=== PATIENT | female | born 1960 | race Caucasian/White ===

== ENCOUNTER 2019-07-18 08:47 | Outpatient (REF) | payer OTHER, SELFPAY ==
[2019-07-18 09:05] LABS: Basophils # 0.1 10^3/uL (0.0-0.1); Basophils % 0.6 %; Eosinophils # 0.2 10^3/uL (0.0-0.8); Eosinophils % 1.9 %; Hematocrit 38.4 % (37.0-47.0); Hemoglobin 12.9 g/dL (11.5-15.3); Lymphocytes # 1.5 10^3/uL (0.8-4.8); Lymphocytes % 16.2 %; Mean Corpuscular HGB Conc 33.6 g/dL (30.0-36.0); Mean Corpuscular Hemoglobin 30.9 pg (28.0-34.0); Mean Corpuscular Volume 92.1 fL (81-99); Mean Platelet Volume 10.6 fL (7.4-10.4); Monocytes # 0.8 10^3/uL (0.2-0.9); Monocytes % 8.8 %; Neutrophils # 6.5 10^3/uL (1.8-7.7); Neutrophils % 72.2 %; Nucleated Red Blood Cells % 0 %; Platelet Count 272 10^3/cmm (130-400); Red Blood Count 4.17 10^6/uL (4.1-5.3); Red Cell Distribution Width 12.8 % (12.1-15.1)
[2019-07-18 11:26] LABS: Estmated Average Glucose 117; Hemoglobin A1C 5.7 % (4.0-6.0)
[2019-07-18 13:49] LABS: Alanine Aminotransferase 13 U/L (0-33); Alkaline Phosphatase 58 IU/L (35-105); Aspartate Amino Transferase 19 U/L (0-32); Blood Urea Nitrogen 12 mg/dL (6-20); Calcium 9.8 mg/dL (8.5-10.5); Carbon Dioxide 25 mmol/L (22-29); Chloride 93 mmol/L (98-107); Chol HDL Ratio 4.05 mg/dL (0.0-4.40); Cholesterol 227 mg/dL (0-200); Globulin 2.8 g/dL (1.3-4.6); Glomerular Filtration Rate 102.3 mL/min (90-130); Glucose 95 mg/dL (65-115); HDL Cholesterol 56 mg/dL (60-100); LDL Cholesterol Calculated 151 mg/dL (50-129); Sodium 131 mmol/L (136-145); Total Bilirubin 0.6 mg/dL (0.15-1.2); Total Protein 6.8 g/dL (6.6-8.7); Triglycerides 98 mg/dL (0-150)
== END 2019-07-18 08:48 | disposition home or self-care (01) ==
LOC: LAB 08:47
PROVIDERS: Family Provider Electrodiagnostic Medicine; PCP Electrodiagnostic Medicine; Visit Provider Dermatology
DX: Z01.89 Encounter for other specified special examinations (principal)
CPT/HCPCS: 80053; 80061; 83036; 85025

== ENCOUNTER 2019-11-01 08:48 | Emergency (ER) | payer OTHER, SELFPAY ==
--- NOTE | 2019-11-01 08:54 | XRR_ITS ---
PROCEDURE INFORMATION: Exam: XR Chest, 1 View Exam date and time: 11/01/2019 8:55 AM Age: 59 years old Clinical indication: Chest pain TECHNIQUE: Imaging protocol: XR of the chest Views: 1 view. COMPARISON: CR Chest 1 [place] [id number] 10/24/2017 7:32 PM FINDINGS: Lungs: COPD, interstitial prominence, chronic granulomatous disease. Pleural space: No pleural effusion. Heart/Mediastinum: No cardiomegaly. Bones/joints: Mild degenerative change. Soft tissues: Prominent nipple shadows. When correlating with the previous study, no significant interval changes are present. XR/XR chest 1V portable [id number] IMPRESSION: Stable appearance of the chest, not significantly changed from 10/24/17.
[2019-11-01 09:00] VITALS: BP 108/80; PULSE 90; RESP 17; TEMP 36.4; O2SAT 98; BMI 17.0
--- NOTE | 2019-11-01 09:05 | W.ED.ARRPALP ---
HPI - Arrhythmia/Palpitations General: Chief Complaint: General Medical Stated Complaint: POSS A-FIB Time Seen by Provider: 11/01/19 08:57 Source: patient Mode of arrival: ambulatory Limitations: no limitations History of Present Illness: HPI narrative: Patient is a 59-year-old female with a history of paroxysmal atrial fibrillation here for complaints of palpitations over the past week. Patient has been on several medications for her atrial fibrillation including flecainide, propafenone, and amiodarone. When she was on these 3 medications she apparently was not tolerating the side effects very well. She has a stem threshing machine operator Dr. Lama in [place] who switched patient to Sotalol (dose of 40mg BID). She is also taking Cardizem (60mg) during episodes. Patient states she was scheduled for cardiac ablation in [place] however that procedure got canceled due to COVID. She is currently rescheduled to see their office November 10 for reevaluation. Patient states she has been having intermittent palpitations, SOB, and dizziness mainly with exertion over the past week. She is having mild chest discomfort during episodes. MD complaint: heart racing , palpitations, irregular heart beat and atrial fibrillation Onset (ago): day(s) Duration: intermittent Context: occurred during rest Arrhythmia history: atrial fibrillation Associated symptoms: Deny nausea, pre-syncope, syncope or vomiting Review of Systems General: Reports: 10 or more systems reviewed and unremarkable except in HPI and below Const: Denies: fever(s) or chills Eyes: Denies: change in vision, blurry vision or photophobia Card: Reports: palpitations and irregular heart rhythm; Denies: chest pain, edema, swelling of feet/ankles, lightheadedness, syncope, pre-syncope, dyspnea on exertion, orthopnea, leg pain with exertion or acrocyanosis Resp: Denies: dyspnea, productive cough, pain on inspiration, hemoptysis or chest congestion GI: Denies: abdominal pain, nausea, vomiting, heartburn or diarrhea : Denies: dysuria Musc: Denies: neck pain, back pain or joint pain Skin/Breast: Denies: rash Neuro: Denies: headache(s), numbness in extremities, weakness in extremities, sensory changes, lack of coordination, difficulty walking or dizziness [facility] ED PFSH: Medical History (Updated 05/23/20 @ 10:30 by OBEY Connelly) Atrial fibrillation Hyperlipidemia Family History Other Cancer Social History Smoking and tobacco status: current every day smoker Physical Exam Const: COMMON NORMALS: no acute distress, average body habitus, patient oriented x3, no limitations, healthy appearing, alert and well nourished HENMT: COMMON NORMALS: normocephalic and atraumatic HEAD & SCALP: normocephalic and atraumatic Neck/C-Spine: COMMON NORMALS: full ROM and no lymphadenopathy GENERAL: No anterior neck swelling Chest: COMMONS NORMALS: normal inspection of the chest and normal palpation of entire chest wall Resp: COMMON NORMALS: normal respiratory effort and clear to auscultation bilaterally AUSCULTATION: clear to auscultation bilaterally Cardio: COMMON NORMALS: regular rate and regular rhythm RATE: regular rate RHYTHM: regular rhythm Extremity: COMMON NORMALS: no clubbing, cyanosis or edema, no calf tenderness and no pedal edema Neuro: COMMON NORMALS: patient oriented x3 SENSORIUM/ORIENTATION: Yes alert Skin: COMMON NORMALS: no rashes or lesions noted GENERAL SKIN EXAM: no rashes or lesions noted Course Vital Signs: Vital signs: Vital Signs Temperature 97.6 F 11/01/19 09:00 Pulse Rate 90 11/01/19 09:00 Respiratory Rate 17 11/01/19 09:00 Blood Pressure 108/80 11/01/19 09:00 Pulse Oximetry 98 11/01/19 09:00 MDM - Arrhythmia/Palpitations MDM Narrative: Medical decision making narrative: Patient's EKG reviewed with Dr. Rivas showing normal sinus rhythm at a rate of 93. She has been in normal sinus with a rate of anywhere from 90-100 throughout her stay. Blood pressure 100s/80s. She tells me she is supposed to be taking Sotalol 40 mg twice daily however over the past 3 to 4 days has been taking 80 mg twice daily. This does not seem to be affecting her rate at this time. Spoke to the stem threshing machine operator Dr. Lopez contract runner who recommended we increase patient's Sotalol to 120 mg twice daily. She can continue taking her Cardizem 60 mg during episodes. With it being a holiday weekend and offices closed on Sunday patient needs to contact either Dr. Wu or Dr. Lama on Sunday for further instructions. Return to ED precautions given regarding the weekend. Lab Data: Labs: Lab Results 11/01/19 11/01/19 11/01/19 Range/Units 09:13 09:13 09:13 WBC 11.3 H (4.0-10.0) 10^3/ uL RBC 3.98 L (4.1-5.3) 10^6/u L Hgb 12.7 (11.5-15.3) g/dL Hct 39.0 (37.0-47.0) % MCV 98.0 (81-99) fL MCH 31.9 (28.0-34.0) pg MCHC 32.6 (30.0-36.0) g/dL RDW 11.9 L (12.1-15.1) % Plt Count 296 (130-400) 10^3/c mm MPV 10.3 (7.4-10.4) fL Neut % (Auto) 76.5 % Lymph % (Auto) 12.9 % [place] % (Auto) 8.3 % Eos % (Auto) 1.3 % Baso % (Auto) 0.6 % Neut # (Auto) 8.7 H (1.8-7.7) 10^3/u L Lymph # (Auto) 1.5 (0.8-4.8) 10^3/u L [place] # (Auto) 0.9 (0.2-0.9) 10^3/u L Eos # (Auto) 0.2 (0.0-0.8) 10^3/u L Baso # (Auto) 0.1 (0.0-0.1) 10^3/u L Nucleated RBC % (a uto) 0 % Nucleated RBCs # 0.0 /100WBC Sodium 139 (136-145) mmol/L Potassium 4.0 (3.5-5.1) mmol/L Chloride 104 (98-107) mmol/L Carbon Dioxide 24 (22-29) mmol/L Anion Gap 15.0 (5-19) BUN 23 H (6-20) mg/dL Creatinine 0.8 (0.5-0.9) mg/dL GFR Calculation 73.4 L (90-130) mL/min Glucose 79 (65-115) mg/dL Calculated Osmolal ity 284 L (285-295) mOsm/k g Calcium 9.9 (8.5-10.5) mg/dL Total Bilirubin 0.4 (0.15-1.2) mg/dL AST 19 (0-32) U/L ALT 16 (0-33) U/L Alkaline Phosphata se 46 (35-105) IU/L Troponin T Baselin e 6 (0-10) ng/mL Total Protein 6.9 (6.6-8.7) g/dL Albumin 4.0 (3.5-5.2) g/dL Globulin 2.9 (1.3-4.6) g/dL TSH 1.75 (0.27-4.20) uIU/ mL Imaging Data^: CXR: Radiologist's impression: [place] [address] XRay Report Signed Patient: Gideon Evans Unit #: [id number] : 1960 Age/Sex: 59 / F ADM Date: 11/01/19 Loc: ER Room/Bed: Attending Dr: Ordering Provider/Ordering MD: Tara Holden Date of Service: 11/01/19 Procedure(s): XR chest 1V portable [id number] Accession Number(s): [id number] Report Number: [id number] PROCEDURE INFORMATION: Exam: XR Chest, 1 View Exam date and time: 11/01/2019 8:55 AM Age: 59 years old Clinical indication: Chest pain TECHNIQUE: Imaging protocol: XR of the chest Views: 1 view. COMPARISON: CR Chest 1 [place] [id number] 10/24/2017 7:32 PM FINDINGS: Lungs: COPD, interstitial prominence, chronic granulomatous disease. Pleural space: No pleural effusion. Heart/Mediastinum: No cardiomegaly. Bones/joints: Mild degenerative change. Soft tissues: Prominent nipple shadows. When correlating with the previous study, no significant interval changes are present. XR/XR chest 1V portable [id number] IMPRESSION: Stable appearance of the chest, not significantly changed from 10/24/17. Dictated By: Willi Bergeron MD Signed By: Willi Bergeron MD Signed Date/Time: 11/01/19 1005 DD/ 1004 EKG Data^: EKG 1: EKG interpretation date: 11/01/19 EKG interpretation time: 09:14 Interpretation: Normal sinus rhythm Rate [address] elevation or depression changes noted Reviewed with Dr. Rivas Other EKG comments: Chest X-Ray 11/01/19 08:54 IMPRESSION: Stable appearance of the chest, not significantly changed from 10/24/17. Discharge Plan Discharge Patient Disposition: Home, Self-Care Clinical Impression: Paroxysmal atrial fibrillation Condition: Stable Prescriptions: Continued sotalol 120 mg tablet 120 mg PO BID Qty: 90 RF: 3 No Action atorvastatin 40 mg tablet 40 mg PO DAILY RF: 0 Xarelto 20 mg tablet 20 mg PO DAILY RF: 0 magnesium oxide 400 mg magnesium capsule 400 mg PO DAILY RF: 0 cholecalciferol (vitamin D3) 125 mcg (5,000 unit) capsule 5,000 unit PO DAILY RF: 0 omega-3 fatty acids [Fish Oil Concentrate] 1,000 mg capsule 1,000 mg PO BID RF: 0 ascorbic acid (vitamin C) 100 mg tablet 100 mg PO DAILY RF: 0 coenzyme Q10 [Co Q-10] 10 mg capsule 10 mg PO TID RF: 0 multivitamin Tablet 1 tab PO DAILY RF: 0 thyroid (pork) [[place] Thyroid] 15 mg tablet 30 mg PO DAILY RF: 0 Discharge Orders: Discharge Order (Routine); Ordered 11/01/19 Ordered By: Tara Holden Referrals: Enrico Bucnh DO [Primary Care Provider] - Patient Instructions: Atrial Fibrillation (ED) Activity Restrictions/Additional Instructions: As discussed you have indicated you have been taking your Sotalol 80 mg twice daily over the past few days and it does not seem to be controlling symptoms. I spoke to the stem threshing machine operator contract runner and we will increase this to 120 mg twice daily. I still recommend you take the Cardizem during episodes as previously instructed. Hydration can limit number of episodes so make sure you are drinking plenty of water/gatorade daily. Contact Dr. Wu and/or Dr. Lama on Sunday to see if they recommend anything further. Monitor blood pressure and heart rates at home. Return to ED for worsening chest pains, prolonged palpitations, dizziness/lightheadedness, passing out episodes, shortness of breath, or any other concerns you may have. Coding Level of Care Code ED Infantry Operations Specialist for Chg Fwd Exam Comprehensive
[2019-11-01 09:19] LABS: Basophils # 0.1 10^3/uL (0.0-0.1); Basophils % 0.6 %; Eosinophils # 0.2 10^3/uL (0.0-0.8); Eosinophils % 1.3 %; Hemoglobin 12.7 g/dL (11.5-15.3); Lymphocytes # 1.5 10^3/uL (0.8-4.8); Lymphocytes % 12.9 %; Mean Corpuscular HGB Conc 32.6 g/dL (30.0-36.0); Mean Corpuscular Hemoglobin 31.9 pg (28.0-34.0); Mean Platelet Volume 10.3 fL (7.4-10.4); Monocytes # 0.9 10^3/uL (0.2-0.9); Monocytes % 8.3 %; Neutrophils # 8.7 10^3/uL (1.8-7.7); Neutrophils % 76.5 %; Nucleated Red Blood Cells % 0 %; Platelet Count 296 10^3/cmm (130-400); Red Blood Count 3.98 10^6/uL (4.1-5.3); Red Cell Distribution Width 11.9 % (12.1-15.1); White Blood Count 11.3 10^3/uL (4.0-10.0)
[2019-11-01 09:36] LABS: Troponin(5th) Baseline 6 ng/mL (0-10)
[2019-11-01 09:44] LABS: Alanine Aminotransferase 16 U/L (0-33); Alkaline Phosphatase 46 IU/L (35-105); Aspartate Amino Transferase 19 U/L (0-32); Blood Urea Nitrogen 23 mg/dL (6-20); Calcium 9.9 mg/dL (8.5-10.5); Carbon Dioxide 24 mmol/L (22-29); Chloride 104 mmol/L (98-107); Globulin 2.9 g/dL (1.3-4.6); Glomerular Filtration Rate 73.4 mL/min (90-130); Glucose 79 mg/dL (65-115); Osmolality Calculated 284 mOsm/kg (285-295); Sodium 139 mmol/L (136-145); Thyroid Stimulating Hormone 1.75 uIU/mL (0.27-4.20); Total Bilirubin 0.4 mg/dL (0.15-1.2); Total Protein 6.9 g/dL (6.6-8.7)
[2019-11-01 10:41] VITALS: BP 90/71; PULSE 96; RESP 18; O2SAT 96
== END 2019-11-01 10:42 | disposition home or self-care (01) ==
PROVIDERS: Emergency Provider Physician Assistant; PCP Electrodiagnostic Medicine
DX: I48.0 Paroxysmal atrial fibrillation (principal); E78.5 Hyperlipidemia, unspecified; F17.210 Nicotine dependence, cigarettes, uncomplicated
CPT/HCPCS: 12345; 71045; 80053; 84443; 84484; 85025; 99282; 99284

== ENCOUNTER 2019-11-14 10:53 | Outpatient (CLI) | payer OTHER, SELFPAY ==
[2019-11-14 11:21] LABS: Basophils % 0.5 %; Eosinophils # 0.2 10^3/uL (0.0-0.8); Eosinophils % 2.5 %; Hematocrit 38.2 % (37.0-47.0); Hemoglobin 12.2 g/dL (11.5-15.3); Lymphocytes # 1.8 10^3/uL (0.8-4.8); Lymphocytes % 23.1 %; Mean Corpuscular HGB Conc 31.9 g/dL (30.0-36.0); Mean Corpuscular Hemoglobin 31.4 pg (28.0-34.0); Mean Corpuscular Volume 98.5 fL (81-99); Mean Platelet Volume 10.5 fL (7.4-10.4); Monocytes # 0.7 10^3/uL (0.2-0.9); Monocytes % 8.7 %; Neutrophils % 65.1 %; Nucleated Red Blood Cells % 0 %; Platelet Count 287 10^3/cmm (130-400); Red Blood Count 3.88 10^6/uL (4.1-5.3); Red Cell Distribution Width 12.4 % (12.1-15.1); White Blood Count 7.7 10^3/uL (4.0-10.0)
[2019-11-14 11:30] LABS: INR 0.91 (0.8-1.2)
[2019-11-14 11:49] LABS: Anion Gap 14.3 (5-19); Blood Urea Nitrogen 17 mg/dL (6-20); Calcium 10.1 mg/dL (8.5-10.5); Carbon Dioxide 26 mmol/L (22-29); Chloride 106 mmol/L (98-107); Glomerular Filtration Rate 102.3 mL/min (90-130); Glucose 98 mg/dL (65-115); Magnesium 2.1 mg/dL (1.7-2.3); Osmolality Calculated 290 mOsm/kg (285-295); Potassium 4.3 mmol/L (3.5-5.1); Sodium 142 mmol/L (136-145)
== END 2019-11-14 10:54 | disposition home or self-care (01) ==
LOC: LAB 10:58
PROVIDERS: PCP Electrodiagnostic Medicine; Visit Provider Internal Medicine Clinical Cardiac Electrophysiology
DX: I47.1 Supraventricular tachycardia (principal)
CPT/HCPCS: 36415; 80048; 83735; 85025; 85610; 85730

== ENCOUNTER 2020-04-20 10:14 | Outpatient (CLI) | payer OTHER, SELFPAY ==
--- NOTE | 2020-04-20 10:24 | XR_ITS ---
WS: [id number] XR KUB [id number] REASON FOR EXAM: CONSTIPATION FINDINGS: Moderate amount of stool throughout the colon including the rectal vault. No significant bowel dilata tion. No free air. No significant calcification. No mass identified. XR/XR KUB [id number] IMPRESSION: Bowel gas pattern as above.
== END 2020-04-20 10:15 | disposition home or self-care (01) ==
LOC: RAD 10:21
PROVIDERS: PCP Electrodiagnostic Medicine; Visit Provider Electrodiagnostic Medicine
DX: K59.00 Constipation, unspecified (principal)
CPT/HCPCS: 74018

== ENCOUNTER 2020-10-28 12:48 | Outpatient (CLI) | payer OTHER, SELFPAY ==
--- NOTE | 2020-10-28 13:01 | MM_ITS ---
WS: [id number] BILATERAL DIGITAL SCREENING MAMMOGRAPHY WITH CAD CLINICAL INFORMATION: SCREENING HISTORY: Screening mammogram. No current complaints. COMPARISON: 01/20 2016 TECHNIQUE: Bilateral CC and MLO views. FINDINGS: The breasts are composed of heterogeneous fibroglandular density tissue, which can limit the detectio n of small underlying mass lesions. No suspicious mass, asymmetry, calcifications, or architectural d istortion. No evidence of malignancy. MM/[place] [id number] IMPRESSION: BI-RADS: 1-Negative FOLLOW UP: 1 Year Follow-up Recommend return to annual screening mammography.
== END 2020-10-28 12:49 | disposition home or self-care (01) ==
LOC: RADSHAW 12:51
PROVIDERS: PCP Electrodiagnostic Medicine; Visit Provider Electrodiagnostic Medicine
DX: Z12.31 Encounter for screening mammogram for malignant neoplasm of breast (principal)
CPT/HCPCS: 77067

== ENCOUNTER 2020-11-30 08:18 | Outpatient (CLI) | payer SELFPAY ==
[2020-11-30 08:40] LABS: HF Add Manual Diff No
[2020-11-30 08:46] LABS: Basophils # 0.1 10^3/uL (0.0-0.1); Eosinophils # 0.2 10^3/uL (0.0-0.8); Eosinophils % 2.2 %; Hemoglobin 13.9 g/dL (11.5-15.3); Lymphocytes # 1.4 10^3/uL (0.8-4.8); Lymphocytes % 18.8 %; Mean Corpuscular HGB Conc 33.1 g/dL (30.0-36.0); Mean Corpuscular Volume 96.6 fL (81-99); Mean Platelet Volume 10.5 fL (7.4-10.4); Monocytes # 0.6 10^3/uL (0.2-0.9); Monocytes % 8.8 %; Neutrophils # 4.96 10^3/uL (1.8-7.7); Neutrophils % 69.1 %; Nucleated Red Blood Cells % 0 %; Platelet Count 260 10^3/cmm (130-400); Red Blood Count 4.35 10^6/uL (4.1-5.3); Red Cell Distribution Width 13.7 % (12.1-15.1); White Blood Count 7.2 10^3/uL (4.0-10.0)
[2020-11-30 09:02] LABS: Alanine Aminotransferase 9 U/L (0-33); Albumin Level 4.2 g/dL (3.5-5.2); Alkaline Phosphatase 49 IU/L (35-105); Anion Gap 11.5 (5-19); Aspartate Amino Transferase 15 U/L (0-32); Blood Urea Nitrogen 16 mg/dL (8-23); Calcium 9.3 mg/dL (8.5-10.5); Carbon Dioxide 28 mmol/L (22-29); Chloride 105 mmol/L (98-107); Chol HDL Ratio 3.61 mg/dL (0.0-4.40); Cholesterol 213 mg/dL (0-200); Globulin 2.5 g/dL (1.3-4.6); Glucose 105 mg/dL (65-115); HDL Cholesterol 59 mg/dL (60-100); LDL Cholesterol Calculated 130 mg/dL (50-129); Osmolality Calculated 292 mOsm/kg (285-295); Potassium 4.5 mmol/L (3.5-5.1); Sodium 140 mmol/L (136-145); Total Bilirubin 0.4 mg/dL (0.15-1.2); Total Protein 6.7 g/dL (6.6-8.7); Triglycerides 122 mg/dL (0-150)
[2020-11-30 09:39] LABS: Estmated Average Glucose 100; Hemoglobin A1C 5.1 % (4.0-6.0)
== END 2020-11-30 08:19 | disposition home or self-care (01) ==
LOC: LAB 08:20
PROVIDERS: PCP Electrodiagnostic Medicine; Visit Provider Dermatology
DX: Z13.9 Encounter for screening, unspecified (principal)

== ENCOUNTER 2022-07-13 07:13 | Outpatient (CLI) | payer OTHER, SELFPAY ==
--- NOTE | 2022-07-13 07:24 | US_ITS ---
WS: [id number] RIGHT UPPER QUADRANT ULTRASOUND HISTORY: ELEVATED LIVER ENZYMES COMPARISON: None available. Liver: 13.3 cm in length. Normal size liver. No bile duct dilatation or mass. Portal Vein: Normal hepatopetal flow with monophasic waveform. Gallbladder: Normally distended gallbladder with no stones or wall thickening. CBD: 0.5 cm Pancreas: Normal size and echogenicity. Right kidney: 10.2 cm in length. Normal size and echogenicity. No hydronephrosis or mass. Aorta and IVC: Unremarkable abdominal aorta and IVC. No ascites. US/US gall bladder [id number] IMPRESSION: Normal RIGHT upper quadrant ultrasound.
== END 2022-07-13 07:14 | disposition home or self-care (01) ==
PROVIDERS: PCP Electrodiagnostic Medicine; Visit Provider Electrodiagnostic Medicine
DX: R74.8 Abnormal levels of other serum enzymes (principal)
CPT/HCPCS: 76705

== ENCOUNTER 2023-01-19 07:36 | Outpatient (CLI) | payer OTHER, SELFPAY ==
--- NOTE | 2023-01-19 07:54 | CT_ITS ---
WS: [id number] CT ABDOMEN AND PELVIS WITH AND WITHOUT CONTRAST HISTORY: CHRONIC ABDOMINAL PAIN TECHNIQUE: Unenhanced 5 mm axial imaging first performed through the abdomen and pelvis. Post contras t imaging through the abdomen and pelvis. Oral contrast has been provided. Sagittal and coronal refo rmats are submitted. All CT scans at [facility] use at least one of these dose optimization t echniques: automated exposure control; mA and/or kV adjustment per patient size (includes targeted ex ams where dose is matched to clinical indication); or iterative reconstruction. CONTRAST: Omnipaque 350; 95 mL IV. DLP: 519.13 mGy.cm COMPARISON: None available. Lung bases are clear. Small hiatal hernia. Normal size liver. 5 mm hepatic cyst right lobe. Normal portal vein. No bile duct dilatation or mass. Normal gallbladder and spleen. Normal pancreas and adrenal glands. No pancreatic duct dilatation. Mi ld atherosclerosis aorta. Kidneys are normal size. No solid mass. Cortical 5 mm cyst upper pole left kidney. No renal calcifications or obstruction. Stomach is well distended with oral contrast. No small bowel obstruction. Marked constipation through out the colon. No obstructive pattern. Large amount of inspissated fecal material at the rectum. The appendix is partially visualized and normal. No adenopathy or ascites. No ventral abdominal wall hernia. Urinary bladder is moderately well disten ded. Straightening of the normal lumbar lordosis. Disc spaces are narrowed and desiccated. IMPRESSION: 1. Marked diffuse constipation with increasing inspissated fecal material at the rectum. 2. No ascites or adenopathy. 3. No renal calcifications or obstruction.
[2023-01-19 09:14] LABS: Blood Urea Nitrogen 13 mg/dL (8-23); Glomerular Filtration Rate 84.8 mL/min (90-130)
[2023-01-19] MEDS: iohexol 350 mg/mL 500 mL Btl (per mL) PO (09:19)
[2023-01-19] MEDS: iohexol 350 mg/mL 500 mL Btl (per mL) IV (09:19)
== END 2023-01-19 07:37 | disposition home or self-care (01) ==
PROVIDERS: PCP Electrodiagnostic Medicine; Visit Provider Electrodiagnostic Medicine
DX: K59.00 Constipation, unspecified (principal); G89.29 Other chronic pain
CPT/HCPCS: 74178; 82565; 84520; Q9967

== ENCOUNTER 2024-12-08 12:54 | Oncology outpatient (recurring) (ONCR) | payer OTHER, SELFPAY ==
--- NOTE | 2024-11-19 14:58 | N.ONRAD NP_ITS ---
Radiation Oncology New Patient Visit Patient: Gideon Evans MR#: [id number] : 1960> Age: 64> Sex: Female> Dictated by: Dr. 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 Radiotherapy to date: Summary > No prior radiation therapy. Chief Complaint / History of Present Illness: New hoarseness 04/2024 with no other sxs. Two courses of antibiotics given with no improvement. 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 Bx 07/23/2024 focal high grade dysplasia. See by Dr. Maciel 10/08/2024 DL performed . small area of residual dysplasia. Bx performed which revealed invasive well differentiated squamous cell carcinoma. Neck CT scan 10/02/2024 Left thyroid lobe cystic and solid mass. No adenopathy and no TVC lesion seen. PET/CT 10/15/2024 normal sized hilar and mediastinal LN mildly hypermetabolic favoring benign process. Bilateral thyroid nodules with no hypermetabolic character. No findings seen at level of glottis larynx. No cervical adenopathy. FNA thyroid 10/22/2024 was benign. Hoarseness is stable. No swallowing, laryngeal or neck pain. Weight up a couple of pounds with effort. Eating well Quit smoking 10/13/2024 after her diagnosis. Fully active. Edentulous. Presented at tumor conference at [facility] at which time staging PET/CT followed by radiation oncology assessment and treatment was recommended. Current Medications: Amour Thyroid replacement Allergies: codeine, alpha-gal. Medical History: Hypothyroid, SVT s/p ablation, rotator cuff repair. COPD Surgical History: Rotator cuff repair Family History: Not obtained Social History: x 14 yrs. 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 Smoked up to 1 ppd 16 to 64 now quit. Vital Signs: Performed on 11/19/2024 9:25 AM BMI - 18.2 kg/m2 (low), Height - 67 in, Weight - 116.2 lbs, Temperature - 97 f, Pulse - 61 /min, Respiration - 18 /min, O2 Sat - 100 %, Pain - 0, Fatigue - 0 and BP - 134/ 80 mm(hg). Physical Exam: Thin in NAD. No stridor. Edentulous with dentures in place. No cervical adenopathy. Larynx mobile and non-tender. No clubbing. Performance Status: ECOG PS 0 Pathology: See above Lab: none Imaging: See HPI Impression: Non bulky St I (T1, N0, M0) well differentiated squamous cell carcinoma of left TVC. Recommend 63 Gy in 28 fraction to glottis larynx alone. No indication for shade coverage and no indication for addition of chemo with primary radiation. Discussed in detail with patient. Plan: Signed by: 11/20/2024 8:27:27 AM <<Signature on File>> Time spent with patient: CPT Code: CPT Code:
--- NOTE | 2024-11-28 13:00 | PC.NUTR ---
Consult for PEG tube feeding recommendations received. Reports in EMR stated Pt has alpha gal allergy therefore she should avoid milk based formulas. Recommend Instapio Peptide 1.5, 3.5 cartons or 875mls/day, per following regimen: *60 mls FWF before and after feeding* 8am: 1 carton (250mls) 1pm: 1 carton (250mls) 4pm: 0.5 carton (125mls) 8pm: 1 carton (250mls) 3.5 cartons of Instapio Peptide 1.5 will provide 1750kcals or 95% Pt's estimate kcal needs and 84 grams protein or 92% Pt's estimated protein needs.
--- NOTE | 2024-12-02 13:58 | ONCRAD TMN_ITS ---
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 ID: GlotticLarynx, Energy: 6X, Dose/Fx (cGy): 225, #Fx: , Dose Correction (cGy): 0, Total Dose Delivered (cGy): 900, Start Date: 11/27/2024, Elapsed Days: 5 Reason for visit: The patient is being seen today as part of their regularly scheduled weekly on treatment visits to assess for acute toxicities from radiotherapy. Review of Systems: LEFT TVC CA. Had feeding tube placed. No voiced complaints. Skin intact Vital Signs: Performed on 12/02/2024 1:32 PM BMI - 18.137 kg/m2 (low), Height - 67 in, Weight - 115.8 lbs, Temperature - 96.7 f, Pulse - 72 /min, Respiration - 16 /min, O2 Sat - 98 %, Pain - 0, Fatigue - 0 and BP - 124/ 84 mm(hg). Physical Exam: AAOx3. Skin intact. No erythema. Imaging: Radiation therapy imaging related to accurate target localization (i.e. KV, MV and CBCT) was reviewed. Appropriate changes, if any, were made to ensure treatment accuracy. Plan: Cont XRT Signed by: Arnel Jade 12/02/2024 1:57:26 PM
== END 2024-12-08 23:59 | disposition home or self-care (01) ==
PROVIDERS: PCP Electrodiagnostic Medicine; Visit Provider Radiology Radiation Oncology
DX: Z51.0 Encounter for antineoplastic radiation therapy (principal); C32.0 Malignant neoplasm of glottis
CPT/HCPCS: 77290; 77295; 77300; 77334; 77336; 77387; 77412

== ENCOUNTER 2024-12-09 12:06 | Outpatient (RCR) | payer OTHER, SELFPAY | END 2025-01-08 23:59 | disposition home or self-care (01) | LOC: SST 12:06 | PROVIDERS: PCP Electrodiagnostic Medicine; Visit Provider Internal Medicine Cardiovascular Disease | DX: C32.0 Malignant neoplasm of glottis (principal) | CPT/HCPCS: 92507; 92524 ==

== ENCOUNTER 2024-12-27 08:53 | Emergency (ER) | payer OTHER, SELFPAY ==
--- OUTSIDE RECORDS SUMMARY | 2007-11-18 19:00 | XMS_ITS | Continuity of Care Document ---
Author Organization [facility] Address [address] [place], [address] Phone Care Team Providers Care Chief Marketing Officer Name Role Phone Unavailable Unavailable Unavailable Advance Directives Directive Yes / No Effective Date File Name No Information Encounters Encounter Description Practice Location Reason(s) For Visit Diagnoses Date Provider Providers Copied on Encounter [facility], [address] [place], [place], [id number], [place] tel:[phone] [facility] [place] [facility] No Information 0200 [id number] No Information Family History Family Member Type Diagnosis Age At Onset No Information Payers Payer name Insurance type Covered alliance party ID Authoriza tion(s) No Information Social History Type Description Quantity Date Captured Comments Sex Female Smoking Status No Information Vital Signs Date / Time: Height Weight BMI Pulse Rate Blood Pressure Temperature Respiratory Rate Body Surface Area Head Circumference Head Circ. Percentile Wt./Les. Percentile BMI percentile Pulse Ox Inhaled Ox 67.00 in 56.699 kg (125.00 lbs) 19.5 8 kg/m eter (2) 76 /min 100/78 mm[Hg] 98.60 F 18 /min Chief Complaint And Reason For Visit No Information Reason For Referral Reason For Referral No Information History Of Present Illness Encounter Date Complaint History Of Prese nt Illness No Information Functional Status Date Functional Assessmen t No Information Instructions Date Instruction Additional Infor mation No Information Assessments Type Assessment Date No Information Patient Care Teams Name Effective Dates (start - stop) Status Members No Information
--- OUTSIDE RECORDS SUMMARY | 2024-12-27 09:00 | XMS_ITS | Encounter Summary ---
Author Organization [facility] Address 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 [address] [place] [address] Dorina Foster FNP [address] [place] [address] documented as of this encounter Visit Diagnoses Not on filedocumented in this encounter
--- OUTSIDE RECORDS SUMMARY | 2024-12-27 09:01 | XMS_ITS ---
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 Past Treatment and Therapy Plans No past plan information found. Lifetime Dose Tracking * Chemical Lifetime Dose Automatic Entry Manual Entr y Effective Dose 1.2 mSv 1.2 mSv 0 mSv Total DLP 202 DLP 202 DLP 0 DLP CTDIvol Max 15.8 mGy 15.8 mGy 0 mGy CTDIvol Min 15.8 mGy 15.8 mGy 0 mGy
--- OUTSIDE RECORDS SUMMARY | 2024-12-27 09:01 | XMS_ITS | Encounter Summary ---
Author Organization [facility] Address [address] [place] [address] Care Team Providers Care Manager Fleet Name Role Phone Unavailable Primary Care Provider Unavailabl e Encounter Details Date Type Department Care Team (Late st Contact Info) Description 12/24/2024 External Device Data [facility] ABSTRACTION Provider, Abstract NO ADDRESS ON FILE Social History Tobacco Use Types Packs/Day Years Used Date Smoking Tobacco: Every Day Cigarettes 0.3 0.5 Started: 2024 Smokeless Tobacco: Never Alcohol Use Standard Drinks/Week Comments Never 0 (1 standard drink = 0.6 oz pur e alcohol) Comments No Sex and Gender Information Value Date Recorded Sex Assigned at Not on file 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
--- OUTSIDE RECORDS SUMMARY | 2024-12-27 09:01 | XMS_ITS | Data Portability ---
Author Organization [facility] Ernesto Aponte [facility], [facility], [facility] Address [address] [address] Care Team Providers Care Guest Services Coordinator Name Role Phone JAIDEN WILKINS Primary Care Provider Unavailabl e Assessment Encounter Date Assessment Date Assessment LastModified by Organization Details LastModified Time 05/20/2024 05/20/2024 Document scribed by Jimenez Camara, [employer]. I was present during interview and exam. I have reviewed and agree with above documentation . Dr. Jaiden Wilkins. [email or web address] Not available 05/20/2024 12:12:08 Plan of Treatment Reminders Order Date Submit Date Provider Last Modified By Organization Details Last Modified Time Details Appointments None recorded. Lab CBC [email or web address] [place] [address] Lab, [address] [place] [address], [address], 4 12:39:31 alpha-gal ige, serum - beef, julio, pork 2023 [facility], [address] [facility], [place], [address], 5 02:59:10 ESR (erythroc yte sedimenta tion rate), blood 2023 [facility] ([facility]), [address] [place], [address], 4 11:58:42 C-reactiv e protein, quantitat radha, serum or plasma 2023 [place] [facility], [address] [facility] , [place] [address], [address], 02:59:13 Referral None recorded. Procedures None recorded. Surgeries None recorded. Imaging electroca rdiogram [address] ([facility]), [address] [place], [address], 16:42:57 Medication Orders amoxicill in 875 mg-potass ium clavulana te 125 mg tablet 2024 025 [facility] #[id number], [address] [place] [facility] [address], [address], 12:34:54 amoxicill in 875 mg-potass ium clavulana te 125 mg tablet 2023 025 [facility]/Ph[facility]acy #[id number], [address] [facility] [address], [address], 5 12:11:34 prednison e 20 mg tablet 2023 024 [id number], [address] [place] [address], [address], 4 12:22:52 azithromy joaquín 250 mg tablet 2023 024 [id number], [address], [address], 4 12:22:23 Patient TargetsNo targets recorded. Patient InstructionsNo instructions recorded. Reason for Referral None Reported. Results Created Date Observation Date Name Description Value Unit Range Abnormal Flag Note LastModifiedBy Organization Detail LastModifiedTime 06/09/20 24 06/09/2024 CBC WBC 7.2 x10 4.0-10 .5 Not Available [facility] [address] [facility] 1, [place], [address], 06/09/2024 10:55:36 06/09/20 24 06/09/2024 CBC RBC 3.95 x10 3.50-5 .50 Not Available [facility] [address] [facility] 1, [place], [address], 06/09/2024 10:55:36 06/09/20 24 06/09/2024 CBC HGB 13.7 g/dL 12.0-1 6.0 Not Available [facility] [address] [facility] 1, [place], [address], 06/09/2024 10:55:36 06/09/20 24 06/09/2024 CBC HCT 37.6 % 37.0-4 7.0 Not Available [facility] [address] [facility] 1, [place], [address], 06/09/2024 10:55:36 06/09/20 24 06/09/2024 CBC MCV 95.1 fL 80.0-9 9.9 Not Available [facility] [address] [facility], [place], [address], 06/09/2024 10:55:36 06/09/20 24 06/09/2024 CBC MCH 34.7 pg 27.0-3 2.0 high Not Available [facility] [address] [facility] 1, [place], [address], 06/09/2024 10:55:36 06/09/20 24 06/09/2024 CBC MCHC 36.5 g/dL 32.0-3 6.0 high Not Available [facility] [address] [facility] 1, [place], [address], 06/09/2024 10:55:36 06/09/20 24 06/09/2024 CBC RDW 13.1 % 11.5-1 4.5 Not Available [facility] [address] [facility], [place], [address], 06/09/2024 10:55:36 06/09/20 24 06/09/2024 CBC plt 252.1 x10 140.0- 451.0 Not Available [facility] [address] [facility], [place], [address], 06/09/2024 10:55:36 06/09/20 24 06/09/2024 CBC lymphocytes % 20.1 % 20.0-5 0.0 Not Available [facility] [address] [facility] 1, [place], [address], 06/09/2024 10:55:36 06/09/20 24 06/09/2024 CBC granulcytes % 71.6 % 30.0-7 0.0 high Not Available [facility] [address] [facility] 1, [place], [address], 06/09/2024 10:55:36 06/09/20 24 06/09/2024 CBC monocytes % 6.1 % 2.0-16 .0 Not Available [facility] [address] [facility] 1, [place], [address], 06/09/2024 10:55:36 06/09/20 24 06/09/2024 CBC granulcytes# 5.2 x10 Not Jesusita ilable [facility] [address] [facility] 1, [place], [address], 06/09/2024 10:55:36 06/09/20 24 06/09/2024 CBC lymphocytes # 1.5 x10 Not Available [facility] [address] [facility] 1, [place], [address], 06/09/2024 10:55:36 06/09/20 24 06/09/2024 CBC monocytes # 0.4 x10 Not Avai lable [facility] [address] [facility], [place], [address], 06/09/2024 10:55:36 06/09/20 24 06/13/2024 ALPHA GAL PANEL beef (F27) IgE 0.11 kU/L high Not Available [place] [address] [place], [address], 06/13/2024 02:59:10 06/09/20 24 06/13/2024 ALPHA GAL PANEL class 0/1 Not Available [place] [address] [place], [address], 06/13/2024 02:59:10 06/09/20 24 06/13/2024 ALPHA GAL PANEL julio (F88) IgE <0.10 kU/L normal Not Available [facility] [place] [place] [address] [place], [address], 06/13/2024 02:59:10 06/09/20 24 06/13/2024 ALPHA GAL PANEL class 0 Not Available [place] [address] [place], [address], 06/13/2024 02:59:10 06/09/20 24 06/13/2024 ALPHA GAL PANEL pork (F26) IgE <0.10 kU/L normal Not Available [facility] [place] [address] [place], [address], 06/13/2024 02:59:10 06/09/20 24 06/13/2024 ALPHA GAL PANEL class 0 Not Available [place] [address] [place], [address], 06/13/2024 02:59:10 06/09/20 24 06/13/2024 ALPHA GAL PANEL galactose alpha 1,3 galactose IgE 0.21 kU/L <0.10 high Resul ts above 0.1 kU/L indic ate an aller gen-s pecif ic IgE sensi tizat ion to galac tose- a-1,3 -gala ctose , and such patie nts are at risk for delay ed aller gic react ions follo wing beef, pork, or julio consu mptio n. Circu latin g IgE antib odies may remai n undet ectab le despi te a convi ncing clini angela histo ry becau se these antib odies may be direc allison towar ds aller gens revea led or alter ed durin g indus trial proce ssing , cooki ng, or diges tion and there fore do not exist in the origi nal food for which the patie nt is teste d. Somet imes indiv idual s diagn osed with chron ic urtic aria may devel op IgE antib odies direc allison again st human thyro globu rosie. Such antib odies may cross -reac t with the bovin e thyro globu rosie used in Immun oCAP( R) Aller gen o215, alpha -Gal, leadi ng to a false -posi tive test resul t. A defin itive diagn osis shoul d be based on the evalu ation of both clini angela and labor atory findi ngs and not on any singl e diagn ostic metho d. Addit ional infor jeb del valle can be found at http: //www .phad ia.co m Not Available [facility] [address] [place], [address], 06/13/2024 02:59:10 06/09/20 24 06/13/2024 INTER PRETA TION interpretati on Speci fic Level of Aller gen IGE Class kU/L Speci fic IGE Antib neelam ----- ----- ---- ----- ----- ----- ---- 0 <0.10 Absen t/Und etect able 0/1 0.10- 0.34 Very Low Level 1 0.35- 0.69 Low Level 2 0.70- 3.49 Moder ate Level 3 3.50- 17.4 High Level 4 17.5- 49.9 Very High Level 5 50-10 0 Very High Level 6 >100 Very High Level The clini angela relev ance of aller gen resul ts of 0.10- 0.34 kU/L are undet ermin ed and inten ded for speci alist use. Aller gens denot ed with a inclu de resul ts using one or more iona te speci fic reage nts. In those cases , the test was devel oped and its iona tical perfo rmanc e dajuan cteri stics have been deter mined by [facility]. It has not been clear ed or appro holger by the U.S. Food and Drug Admin istra tion. This assay has been valid ated pursu ant to the CLIA regul ation s and is used for clini angela purpo ses. Not Available [facility] [address] [place], [address], 06/13/2024 02:59:13 06/09/20 24 06/13/2024 C-UMBERTO CTIVE PROTE IN C-reactive protein <3.0 mg/L <8.0 normal Not Available [facility] [place] [address] [place], [address], 06/13/2024 02:59:13 06/09/20 24 06/09/2024 ESR (eryt hrocy te sedim entat ion rate) , blood SedRate 33 Not Available [facility] ([facility]) [address] [place] [address], [address], 05/05/2024 13:03:42 07/14/19 25 07/14/2024 elect kelly chang am No observ ation record ed. [email or web address] [facility] ([facility]) [address] [place] [address], [address], 07/14/2024 13:07:53 Result Notes None recorded. Problems Name Problem SNOMED Code Status Onset Date Resolution Date Notes Provider Name and Address Organization Details Recorded Time Supraventric ular tachycardia 2968199 Active 2022 SVT (SUPRAV ENTRICU LAR TACHYCA RDIA); 023 1:12PM by Mai Sweeney, Office Visit; Promote d; acuity set as *; Not Available [facility] 3 03:18:22 Chronic constipation 789044097 Active 2022 [place] [place] [address] , [facility] 3 15:48:53 Chronic abdominal pain 432501361 Active 2022 [place] [address] , [facility] 3 15:49:01 Hyperlipidem ia 59369838 Active 2023 [place] [address] , [facility] 4 10:16:44 Hypothyroidi sm 30625928 Active 2023 [place] [place] [address] , [facility] 4 10:16:46 Seborrheic keratosis 833789803 Active 2023 [place] [address] , [facility] 4 09:29:07 Tinea pedis 2166591 Active 2023 [place] [address] , [facility] 4 09:29:09 Bite of insect Active 2023 Jaidencamryn Wilkins, [address], [address] [place] [address] , [facility] 4 09:29:10 Fatigue 22719943 Active 2023 Jaiden Wilkins, [address], [address] [place] [address] , [facility] 4 13:04:53 Lymphocytope zarina 58331549 Active 2023 Jaiden Wilkins, [address], [address] [place] [address] , [facility] 4 13:06:43 Infection of gastrostomy site 521843671 Active 2024 Jaiden Wilkins, [address], [address] [place] [address] , [facility] 5 12:51:19 Primary malignant neoplasm of larynx 094019350 Active 2024 Jaiden Wilkins, [address], [address] [place] [address] , [facility] 5 12:52:25 Problem Notes Documentation Provider Name and Address Organization Details Recorded Time Oncology Clinic Consult Note : [place] [address] Onc Rad New Patient/Consult Signed Patient: Gideon Evans MR#: [id number] : 1960 Age/Sex: 64 / F ADM Date: 11/19/24 Loc: ONCMED Room/Bed: Attending Dr: Charlie Ballesteros MD Report Number: [id number] Radiation Oncology New Patient Visit Patient: Gideon Evans MR#: [id number] : 1960> Age: 64> Sex: Female> Dictated by: Dr. 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 Radiotherapy to date: Summary > No prior radiation therapy. Chief Complaint / History of Present Illness: New hoarseness 04/2024 with no other sxs. Two courses of antibiotics given with no improvement. 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 Bx 07/23/2024 focal high grade dysplasia. See by Dr. Maciel 10/08/2024 DL performed . small area of residual dysplasia. Bx performed which revealed invasive well differentiated squamous cell carcinoma. Neck CT scan 10/02/2024 Left thyroid lobe cystic and solid mass. No adenopathy and no TVC lesion seen. PET/CT 10/15/2024 normal sized hilar and mediastinal LN mildly hypermetabolic favoring benign process. Bilateral thyroid nodules with no hypermetabolic character. No findings seen at level of glottis larynx. No cervical adenopathy. FNA thyroid 10/22/2024 was benign. Hoarseness is stable. No swallowing, laryngeal or neck pain. Weight up a couple of pounds with effort. Eating well Quit smoking 10/13/2024 after her diagnosis. Fully active. Edentulous. Presented at tumor conference at [facility] in [place] at which time staging PET/CT followed by radiation oncology assessment and treatment was recommended. Current Medications: Amour Thyroid replacement Allergies: codeine, alpha-gal. Medical History: Hypothyroid, SVT s/p ablation, rotator cuff repair. COPD Surgical History: Rotator cuff repair Family History: Not obtained Social History: x 14 yrs. 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 Smoked up to 1 ppd 16 to 64 now quit. Vital Signs: Performed on 11/19/2024 9:25 AM BMI - 18.2 kg/m2 (low), Height - 67 in, Weight - 116.2 lbs, Temperature - 97 f, Pulse - 61 /min, Respiration - 18 /min, O2 Sat - 100 %, Pain - 0, Fatigue - 0 and BP - 134/ 80 mm(hg). Physical Exam: Thin in NAD. No stridor. Edentulous with dentures in place. No cervical adenopathy. Larynx mobile and non-tender. No clubbing. Performance Status: ECOG PS 0 Pathology: See above Lab: none Imaging: See HPI Impression: Non bulky St I (T1, N0, M0) well differentiated squamous cell carcinoma of left TVC. Recommend 63 Gy in 28 fraction to glottis larynx alone. No indication for shade coverage and no indication for addition of chemo with primary radiation. Discussed in detail with patient. Plan: Signed by: 11/20/2024 8:27:27 AM < > Time spent with patient: CPT Code: CPT Code: Dictated By: Charlie Ballesteros MD Signed By: Signed Date/Time: 11/20/24 0829 DD/ 0945 Jaiden Wilkins, [address], [address] 12/23/2024 15:00:06 Procedures Surgical History Date Name Laterality Status Provider Name and Address Organization Details Recorded Time excision of lesion of larynx completed [facility]I SWEENEY [facility] 12/11/2024 12:17:47 Imaging Results None recorded. Procedure Notes None recorded. Medical Equipment None Reported. Allergies Allergen ID Allergen Name Allergen Category Reaction Reaction Severity Criticality Documentation Date Start Date Code Code System Note Provider Name and Address Organization Details Recorded Time 5588 codeine medicatio n Not available Not available Not available 01/01/2023 2670 RxNorm MAI SWE[facility] 3 15:33:32 43642 codeine hydrochlo ride Not available Not available Not available Not available 01/06/2023 78885 66 RxNorm Comme nt: Recor ded 07/12 1:12P M by Marlyn lala, Offic e Visit ; Eduardo cooper; Dinora saha ce: *; ; Not Available [facility] 02:29:30 Medications Name Sig Start Date Stop Date Status Note LastModified by Organization Details LastModified Time atorvasta tin 40 mg tablet TAKE 1 TABLET BY MOUTH EVERY DAY AT NIGHT 01/01 completed Not Available Not Available Not Available azithromy joaquín 250 mg tablet TAKE 2 TABLETS (500 MG) BY ORAL ROUTE ONCE DAILY FOR 1 DAY THEN 1 TABLET (250 MG) BY ORAL ROUTE ONCE DAILY FOR 4 DAYS 05/20 completed Not Available Not Available Not Available hydrocodo ne 5 mg-acetam inophen 325 mg tablet TAKE 1 TO 2 TABLETS BY MOUTH EVERY 5 HOURS NEEDED FOR PAIN active Not Available Not Available No t Available prednison e 20 mg tablet Take 1 tablet every day by oral route for 7 days. 05/20 completed Not Available Not Available Not Available omeprazol e 40 mg capsule,d elayed release TAKE 1 CAPSULE BY MOUTH EVERY DAY active Not Available Not Available No t Available Kenvil Thyroid 30 mg tablet TAKE 1 TABLET BY MOUTH EVERY DAY active Not Available Not Available No t Available levofloxa joaquín 500 mg tablet TAKE 1 TABLET BY MOUTH EVERY DAY FOR 7 DAYS active Not Available Not Available No t Available amoxicill in 875 mg-potass ium clavulana te 125 mg tablet TAKE 1 TABLET BY MOUTH TWICE A DAY FOR 10 DAYS active Not Available Not Available No t Available Multi Enzymes tablet 11/07 completed 0; Recorded 07/12/19 23 1:11PM by Mai Sweeney, Office Visit; Not Available Not Available Not Available Papaya Enzyme 11/07 completed 0; Recorded 07/12/19 23 1:11PM by Mai Sweeney, Office Visit; Not Available Not Available Not Available Probiotic active Not Available Not Jesusita ilable Not Available Vitals Date Recorded Body height Body mass index (BMI) Body weight Oxygen saturation Oxygen saturation in Arterial blood by Pulse oximetry Heart rate Respiratory rate Systolic And Diastolic Provider Name and Address Organization Details Last Updated DateTime 5 170.18 cm 18.4 kg/m2 92240.1 1 g 98 % 98 % 91 /min 18 /min 112/72 mm[Hg] MAI SWEENEY [facility] 5 12:12:21 Date Recorded Body height Body mass index (BMI) Body weight Oxygen saturation Oxygen saturation in Arterial blood by Pulse oximetry Heart rate Respiratory rate Systolic And Diastolic Provider Name and Address Organization Details Last Updated DateTime 5 170.18 cm 18.2 kg/m2 94959.5 1 g 98 % 98 % 61 /min 18 /min 110/80 mm[Hg] Mary [facility] 5 14:34:43 Date Recorded Body height Body mass index (BMI) Body weight Oxygen saturation Oxygen saturation in Arterial blood by Pulse oximetry Heart rate Respiratory rate Systolic And Diastolic Provider Name and Address Organization Details Last Updated DateTime 4 170.18 cm 18.3 kg/m2 08393.0 1 g 99 % 99 % 69 /min 18 /min 130/80 mm[Hg] Mary [facility] 4 12:31:59 Date Recorded Body height Body mass index (BMI) Body weight Oxygen saturation Oxygen saturation in Arterial blood by Pulse oximetry Heart rate Respiratory rate Systolic And Diastolic Provider Name and Address Organization Details Last Updated DateTime 4 170.18 cm 18.4 kg/m2 18318.7 1 g 98 % 98 % 80 /min 18 /min 120/80 mm[Hg] [facility] 4 11:47:25 Social History Question Answer Notes LastModified by [employer] Details LastModified Time Tobacco Smoking Status Former Smoker quit smoking summer 2024. Jimenez deal [facility] 12/23/2024 15:01:28 Which Illicit Or Recreational Drugs Have You Used? Marijuana [email or web address] Information not available 01/01/2023 Sex: Unknown Functional Status Question Answer Note LastModified by [employer] Details LastModified Time Do you use any illicit or recreational drugs? Yes [email or web address] Information not available 01/01/2023 Do you or have you ever used any other forms of tobacco or nicotine? Yes [email or web address] Information not available 01/01/2023 What is your level of alcohol consumption? None [email or web address] Information not available 01/01/2023 Mental Status None recorded. Family History Nothing Reported. Medical History No medical history recorded. Gynecological HistoryNo gynecological history recorded. Obstetrics History GPAL:G 0 P 0 0 0 0 Immunizations Vaccine Type Date Status Note Provider Nam e and Address Organization Details Recorded Time COVID-19, mRNA, LNP-S, PF, 100 mcg/0.5mL dose or 50 mcg/0.25mL dose 07/08/2020 completed Mary deal [facility] 04/01/2024 08:46:59 COVID-19, mRNA, LNP-S, PF, 100 mcg/0.5mL dose or 50 mcg/0.25mL dose 08/20/2020 completed Mary deal [facility] 04/01/2024 08:46:59 COVID-19, mRNA, LNP-S, PF, 100 mcg/0.5mL dose or 50 mcg/0.25mL dose 04/18/2021 completed Mary deal [facility] 04/01/2024 08:46:59 Past Encounters Encounter ID Performer Location Encounter Start Date Encounter Closed Date Diagnosis/Indication Diagnosis SNOMED-CT Code Diagnosis ICD10 Code Diagnosis Note [id number] Jaiden Wilkins DO [facility] ([facility]) [address] [place] [phone] 01/01/2023 15:09:48 01/01/2023 16:18:51 Chronic constipation 770738935 K59.09 continues with severe constipati on requiring daily laxatives and stool softeners. will send to [facility] for 2nd opinion. Chronic ab dominal pain 067556381 R10.9 With chronic constipati on that is refractory and transient elevation of transamina ses. Patient has had x-rays liver ultrasound and repeat labs here. She was sent to [place] [facility] in [facility] and had a colonoscop y that only showed a few small polyps that were removed. We will proceed with CT scan of the abdomen and pelvis and get a second opinion from gastroente rology. Counseled patient on diet and signs and symptoms of worsening. [id number] Jaiden Wilkins DO [facility] ([facility]) [address] [place] [phone] 11/08/2023 09:24:27 11/08/2023 10:26:09 Chronic constipation 897638567 K59.09 continues with severe constipati on requiring daily laxatives and stool softeners. Chronic ab dominal pain 663849686 R10.9 With chronic constipati on that is refractory and also has recurrent transient elevation of transamina ses. CT and US have been negative otherwise. she is followed by gastroente [facility] in [facility] and had a colonoscop y recently. Will continue with q6mt liver labs, counseled again on managing chronic constipati on. Hypothyroidism 77024207 E03.9 Patient remains on Kenvil Thyroid. She does not want to be on levothyrox ine. Repeat labs. Continue medication for Hyperlipidemia 79244000 E78.5 Patient stopped her simvastati n several months ago. We will repeat labs and consider restarting . [id number] Jaiden Wilkins DO [facility] ([facility]) [address] [place] [phone] 04/01/2024 08:43:27 04/01/2024 09:37:43 Hypothyroidism 15764142 E03.9 Patient remains on Kenvil Thyroid. She does not want to be on levothyrox ine. Repeat labs. Hyperlipidemia 57467190 E78.5 Patient stopped her simvastati n about 1 year ago. Taking omega 3 FA. We will repeat labs and consider restarting . Chronic ab dominal pain 831339775 R10.9 much imrpoved since starting vegetarian diet. will check labs due to hx of malabsorpt ion. Seborrheic keratosis 394 261317 L82.1 right inner thigh. counseled on dx. she declines cryotherap y, wants to watch and wait. Tinea pedis 6032647 B35. 3 start topical terbinafin e, pt will get OTC. Bite of insect 591421154 W57.XXXA right thigh, improving. continue topical savv, Return to office with no improvemen t or any problems. Go to ER with severe worsening or severe problems. [id number] Jaiden Wilkins DO [facility] ([facility]) [address] [place] [phone] 05/05/2024 11:52:04 05/05/2024 17:47:33 Acute laryngitis 3938284 J04.0 for 4 weeks, not resolving. will start abx. consider further workup if not resolved with tx. Fatigue 83268967 R53.83 worsening with recent normal b12, folate, hgb, vit D. will f/u on lymphapeni a and check alpha gal per pt request. counseled Lymphocytopenia 20305601 D72.810 04/01/24: with fatigue and cervical lymphadeno ankur and larynigiti s. will get labs. consider CTlymphocy maximino %12.5lowgr anulcytes %80.0highm onocytes %6.2granul cytes#8.0l ymphocytes #1.3monocy maximino #0.6 [id number] Jaiden Wilkins DO [facility] ([facility]) [address] [place] [address] 5 05/20/2024 11:16:21 05/22/2024 09:31:46 Acute laryngitis 6244185 J04.0 05/20/24- Counseled will treat with another round of abx, pt ok with Augmentin. [id number] Jaiden Wilkins DO [facility] ([facility]) [address] [place], [place] [phone] 07/14/2024 10:29:42 07/15/2024 16:42:57 Preoperative cardiovascular examination [id number] Z01.631 [id number] Jaiden Wilkins DO [facility]) [address] [place], [place] [id number] 12/11/2024 12:03:18 12/16/2024 08:29:10 Infection of gastrostomy site [id number] K94.22 L03.319 all sutures have already been removed. wound cleaned with dry gauze. fresh guaze placed.dk l start oral augmentin, monitor closely. counseled on s/s of concern and counseled on wound care and G tube care. keep f/u appts with specialist s. She will f/u with me in 1-2 wks for more thorough evaluation on recent health changes and her treatment process. Primary ma lignant neoplasm of larynx [id number] C32.9 Health Concerns Section Related Observation LastModified by Organization Detai ls LastModified Time None Recorded Concern Status LastModified by Organization Details LastModified Time None Recorded Advance Directives Directive None Recorded Payers Insurance Date Sequence Insurance Name Policy Number Policy Jesus Covered Member ID Jessu Member ID Guarantor Name 12/20/2024 1 [employer] [place] [id number] Gideon Evans [id number] Evans 12/11/2024 1 [employer] [place] Gideon Evans [id number] Gideon Evans Notes Date Note Type Note Provider Name and Address Organization Details Recorded Time 05/05/2024 text/html pt presents for acute illness, laryngitis for approximately 4 weeksshe denies any pain, fever, no cough/congestionshe has not had any sinus sxshe reports that her family that lives on the property is hard of hearing and they are having a hard time hearing her. She is speaking louder and by the end of the day she has no voice labs from 04/01/24 with lymphapenia. more fatigued than usual lately. not even wanting to work out now. remians on veggitarian diet. Jaiden Wilkins DO [address] [place] [address], [phone], [facility] 05/05/2024 13:06:52 05/20/2024 text/html Pt presents to recheck on laryngitis. We saw her on 05/05/24, treated with Zpack for 5 days and Prednisone for 7 days. She had been feeling better on these meds, however on day 6 she decided to take a power walk outside in the cold and symptoms returned. Now with runny nose, sinus drainage.She feels like she has crackling in the left ear. Jaiden Wilkins, [address] [place] [address], [phone], [facility] 05/20/2024 15:29:20 12/11/2024 text/html Pt has concerns about infection on feeding tube s/p laryngeal carcinoma excision of the left true vocal cord on 10/08/24 at [facility].Had feeding tube placed on 11/26/24 at [facility] She has started radiation here at [facility] she developed severe pain aroumd Peg tube drain 1 wk ago. went up last sunday, had 1 suture removed and pain improved. went up twice since and had other sutures removed from G tube, with pus draining after each suture removed, and pain improved for short term. she denies n/v/d or abd pain. she reports she asked for oral antibiotics, but the FINANCIAL DATA ANALYST with surgeon would not prescribe any and was told to ask her oncologist. She went to oncologist and was told they didn't do that sort of thing. she reports she is swallowing well, able to eat and drink ok. Jaiden Wilkins, DO [address] [place] [address], [phone], [facility], [place] 12/11/2024 12:52:36 OBGyn Episode No OBEpisode recorded.
--- OUTSIDE RECORDS SUMMARY | 2024-12-27 09:01 | XMS_ITS | Encounter Summary ---
Author Organization [facility] Address 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
--- OUTSIDE RECORDS SUMMARY | 2024-12-27 09:01 | XMS_ITS | Clinical Summary ---
Author Organization [facility] Address [address] [place] [address] Care Team Providers Care Change Control Analyst Name Role Phone Unavailable Primary Care Provider Unavailabl e Allergies Active Allergy Reactions Criticality Noted Date Comments Alpha-Gal (Rwoshrloq-Cdkzy-3,3 -Galactose) Other (See Comments) 10/03/2024 Other Codeine Shortness of Breath/Wheezing High 09/22/2024 Gluten Other (See Comments) Low 11/26/2024 Bloating, fatigue, fog Medications thyroid, pork, (ARMOUR THYROID) 30 mg tablet Take 30 mg by mouth daily. Active CYANOCOBALAMIN, VITAMIN B-12, ORAL Take 1 Tablet by mouth daily. Active multivitamin (DAILY-RENAE) tablet Take 1 Tablet by mouth daily. Active Fish Oil-[place]-3 Fatty Acids 360-1,200 mg Capsule Take 1 Capsule by mouth 2 times daily. Active MULTIVIT,MIN52-F SSIO-NOKD-CQ19 ORAL Take 10 Units by mouth daily. Active omeprazole (PriLOSEC) 40 mg Capsule, Delayed Release(E.C.)Ind ications:Acid indigestion Take 1 Capsule (40 mg) by mouth daily. 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 [address] Dave Maciel MD Discharge Disposition: Home or Self Care 12/09/2024 Telephone [facility] [address] [place] [address] Daly Mueller, ANDERS Nurse Navigation 12/05/2024 10:49 AM CDT - 12/05/2024 11:59 PM CDT Hospital Encounter [facility] Interventional Radiology [address] [place] [address] 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 [address] Dave Maicel MD Todd, Adam Ross, MD Discharge Disposition: Home or Self Care 11/26/2024 External Device Data STL ABSTRACTION Provider, Abstract 11/26/2024 External Device Data STL ABSTRACTION Provider, Abstract 11/19/2024 Chart Note [facility] Cancer and Hematology [place] [address] [place] [address] Mylene Rogel, LINN 11/13/2024 Telephone [facility] Ear, Nose and Throat [address] [place] [address] [place] [address] Dave Maciel MD referral to [facility] 11/12/2024 Telephone [facility] [address] [place] [address] [address] [place] [address] Daly Mueller, RN Nurse Navigation 11/12/2024 Telephone [facility] [address] [place] [address] [address] [place] [address] Daly Mueller, RN Nurse Navigation 11/11/2024 11:15 AM CDT Office Visit [facility] Supportive Care [facility] [address] [place] [address] Georgina Boyce MD 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) (Primary Dx); Palliative care by specialist; Cancer related pain; Depression screen; Chronic idiopathic constipation 11/11/2024 7:55 AM CDT - 11/11/2024 11:59 PM CDT Hospital Encounter [facility] [address] [place] [address] Dave Maciel MD McGrady, Molly L, FITTER TACKER Discharge Disposition: Home or Self Care 11/10/2024 Telephone [facility] [address] [place] [address] [place] [address] Daly Mueller, RN Nurse Navigation 10/27/2024 Results Follow-Up [facility] Ear Nose and Throat Head [place]ck [facility] [address] [place] [address] Dave Maciel MD CYTOLOGY, NON GYNE 10/24/2024 Telephone [facility] Ear Nose and Throat [place] [facility] [address] [place] [address] Christiano Cruz MD Prilosec 40 mg daily 10/22/2024 7:35 AM CDT - 10/22/2024 11:59 PM CDT Hospital Encounter [facility] Ultrasound [address] 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) (Primary Dx) 10/15/2024 12:23 PM CDT - 10/15/2024 11:59 PM CDT Hospital Encounter [facility] Nuclear Medicine [address] [place] [address] Dave Maciel MD Discharge Disposition: Home or Self Care 10/14/2024 External Device Data STL ABSTRACTION Provider, Abstract 10/14/2024 External Device Data STL ABSTRACTION Provider, Abstract 10/14/2024 External Device Data STL ABSTRACTION Provider, Abstract 10/10/2024 Cancer Conference [facility] [address] [place] [address] [place] [address] Daly Mueller, RN 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) (Primary Dx) 10/09/2024 Results Follow-Up [facility] Ear Nose and Throat [place] [facility] [address] [place] [address] Dave Maciel MD US HEAD NECK TISSUES 10/09/2024 Orders Only [facility] Ear Nose and Throat [place] [facility] [address] [place] [address] Dave Maciel MD Thyroid nodule (Primary Dx) 10/08/2024 9:55 AM CDT - 10/08/2024 11:02 AM CDT Surgery [facility] [address] [place] [address] [place] [address] Dave Maciel MD LARYNGOSCOPY WITH BIOPSY 10/08/2024 9:47 AM CDT Anesthesia Event [facility] [address] [place] [address] [facility] [address] [place] [address] Branden May III, MD 10/08/2024 6:47 AM CDT - 10/08/2024 12:10 PM CDT Hospital Encounter [facility] [address] [place] [address] [address] Dave Maciel MD Vocal cord nodule Discharge Disposition: Home or Self Care 10/07/2024 1:37 PM CDT - 10/07/2024 11:59 PM CDT Hospital Encounter [facility] Multi Specialty Ultrasound [place] [address] [place] [address] Dave Maciel MD Discharge Disposition: Home or Self Care 10/07/2024 Telephone [facility] Ear Nose and Throat [place] [facility] [address] [place] [phone] Dorina Foster FNP Appointment Rescheduled 10/06/2024 Orders Only [facility] Ear Nose and Throat [place] [facility] [address] [place] [address] Dave Maciel MD Thyroid nodule (Primary Dx) 10/03/2024 Travel 10/02/2024 7:03 AM CDT - 10/02/2024 11:59 PM CDT [facility] [place] [address] [facility] [address] [place] [address] Dave Maciel MD Discharge Disposition: Home or Self Care 10/02/2024 7:01 AM CDT - 10/02/2024 11:59 PM CDT Hospital Encounter [facility] CT Scan [place] [address] [facility] [facility] [address] [place] [phone] Dave Maciel MD Discharge Disposition: Home or Self Care 10/02/2024 Telephone [facility] Ear, Nose and Throat [address] [place] 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 Gender Identity Not on file Sexual Orientation Not on file Last Filed Vital Signs Vital Sign Reading Time Taken Comments Blood Pressure 124/68 12/01/2024 11:52 AM CDT Pulse 65 12/01/2024 11:52 AM CDT Temperature 36.2 C (97.2 F) 12/01/2024 10:33 AM CDT Respiratory Rate 16 11/26/2024 1:39 PM CDT Oxygen Saturation 98% 12/01/2024 11:52 AM CDT Inhaled Oxygen Concentration - - Weight 53.1 kg (117 lb) 12/01/2024 11:52 AM CDT Height 170.2 cm (5' 7 ) 12/01/2024 11:52 AM CDT Body Mass Index 18.32 12/01/2024 11:52 AM CDT Plan of Treatment Upcoming Encounters Date Type Department Care Team (Late st Contact Info) Description 01/29/2025 1:30 PM CDT Office Visit [facility] Ear Nose and Throat Head [place] [facility] [address] [place] [address] Dorina Foster, VANESSA [address] [place] [address] Health Maintenance Due Date Last Done Comments DTAP/TDAP/TD VACCINES (1 - Tdap) 01/20/1979 HPV/Cotest (21-29) 01/20/1981 CERVICAL CANCER SCREENING 01/20/1990 HPV/Cotest (30-65) 01/20/1990 PAP SMEAR 01/20/1990 BREAST CANCER SCREENING 2000 COLORECTAL SCREENING 01/20/2005 Colorectal Cancer Screening 01/20/2005 FIT-DNA Q 3 years 01/20/2005 FIT/FOBT Q 1 year 01/20/2005 Flex Sig/CT Colonography Q 5 years 01/20/2005 ZOSTER VACCINE (1 of 2) 01/20/2010 COVID-19 Vaccine ( season) 2024 04/18/2021, 08/20/2020, 07/08/2020 INFLUENZA VACCINE (#1) 2025 RSV VACCINE (60+ or ) (1 - 1-dose 75+ series) 01/20/2035 Medical Devices Implanted Type Area Glass Glazier Device Identifier Shelf Expiration Date Model / Serial / Lot Tube Feeding Janet Gastro Bolus 16fr [id number] - [id number] Implanted:Qty: 1 on 11/26/2024 by Wayne Johnson MD at [facility] Feeding Device Left: Abdomen [employer] f[employer] HALYARD [id number] 07/16/2027 [id number] V / / [id number] Procedures Procedure Name Priority Date/Time Associated Diagnosis Comments THYROID ANTIBODIES Routine 12/01/2024 12 :42 PM CDT Multinodular goiter Hypothyroidism, unspecified type T4 FREE Routine 12/01/2024 12:42 PM CDT Multinodular goiter Hypothyroidism, unspecified type TSH Routine 12/01/2024 12:42 PM CDT Multinodular goiter Hypothyroidism, unspecified type IR TUBE PLACEMENT Stat 11/26/2024 11: 31 AM CDT 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) PROTIME-INR Stat 11/26/2024 10:09 AM CDT CBC WITHOUT DIFFERENTIAL Stat 11/26/2024 10:09 AM CDT CYTOLOGY, NON GYNE Pathology 10/22/2024 10 :14 AM CDT US GUIDED ASPIRATION Routine 10/22/2024 8:46 AM CDT Thyroid nodule PET TUMOR OR INFECTION IMG W CT SKB MDTH Stat 10/15/2024 3:36 PM CDT 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) POC GLUCOSE Routine 10/15/2024 1:37 PM CDT PROCEDURE PHOTOGRAPHS 10/13/2024 3:09 AM CDT TELEMETRY REPORT 10/13/2024 3:09 AM CDT PATHOLOGY Pathology 10/08/2024 10:17 AM CDT Vocal cord nodule DC ANES INSERT ENDOTRACHEAL AIRWAY Routine 10/08/2024 10:07 AM CDT DC LARYNGOSCOPY DIRECT OPERATIVE W/BIOPSY 10/08/2024 9:55 AM CDT Vocal cord nodule US HEAD NECK TISSUES Routine 10/07/2024 2:21 PM CDT Thyroid nodule CT SOFT TISSUE NECK W CONTRAST Routine 10/02/2024 7:20 AM CDT Vocal cord nodule XR CHEST PA AND LATERAL 2 VW Routine 10/02/2024 7:09 AM CDT Pre-operative clearance from Last 3 Months Results * THYROID AUTOANTIBODIES PROFILE (12/01/2024 12:42 PM CDT) THYROGLOBULIN AB <1 < or = 1 IU/mL [facility] [place] THYROID PEROXIDASE AB 2 <9 IU/mL [facility] Comment: FASTING:NO FASTING: NO Test Performed at: [facility] [address] [place] [address] Abilio Booth Blood 12/01/2024 12:4 2 PM CDT 12/01/2024 12:42 PM CDT us Michael Bautista MD CHEMISTRY ORDERABLES Final R esult [facility] [phone] [facility] [address] [place] [address] * TSH (12/01/2024 12:42 PM CDT) TSH 1.91 0.40 - 4.50 mIU/L [facility] Comment: FASTING:NO FASTING: NO Test Performed at: [facility] [address] [place] [address] Arlen Hamilton MD Blood 12/01/2024 12:4 2 PM CDT 12/01/2024 12:42 PM CDT us Michael Bautista MD CHEMISTRY ORDERABLES Final R esult [facility] [phone] [facility] [address] [place] [address] * T4 FREE (12/01/2024 12:42 PM CDT) T4 FREE 1.1 0.8 - 1.8 ng/dL [facility] Comment: Test Performed at: [facility] [address] [place] [address] Arlen Hamilton MD Blood 12/01/2024 12:4 2 PM CDT 12/01/2024 12:42 PM CDT us Michael Bautista MD CHEMISTRY ORDERABLES Final R esult [facility] [phone] [facility] [address] [facility] [place] [address] * IR TUBE PLACEMENT (11/26/2024 11:31 AM CDT) Anatomical Region Laterality Modality X-Ray Angiograph y 11/26/2024 11:3 1 AM CDT Impressions 11/26/2024 3:08 PM CDT IMPRESSION: Successful image-guided insertion of a percutaneous gastrostomy tube. 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 DATE: 11/26/2024. COMPARISON: PET/CT dated 10/15/2024. PHYSICIAN: Wayne Johnson CONSENT: After discussing the potential risks, benefits, and alternatives of the procedure, written informed consent was obtained. MEDICATIONS: Versed 2.5 mg IV, fentanyl 100 echogram IV, Ancef 2 g IV, 1% lidocaine subcutaneous. SEDATION: Moderate (conscious) sedation for this procedure was performed with continuous physician supervision. Medical history, physical exam, drug dosages, routes of drug administration, monitoring data, and precise times of service are documented in the medical record on the [facility]-approved form, 'Sedative/Analgesic Administration for Diagnostic and Therapeutic Procedures'. Please see nursing flow sheets for dosage and time. DESCRIPTION OF PROCEDURE: The patient was brought to the angiography suite and placed on table in the supine position. The patient's mid and left upper abdomen were prepped and draped in the usual sterile fashion. The abdomen was evaluated with ultrasound and the liver margin was marked on the skin surface. The patient was given glucagon IV, and the stomach was inflated with air via a previously placed nasogastric tube. The skin and subcutaneous tissues overlying the stomach were infiltrated with 2% lidocaine without epinephrine. A T-fastener needle was advanced into the stomach lumen under fluoroscopic guidance, and intragastric position was confirmed by aspiration of air from the stomach lumen and injection of contrast into the stomach lumen. A total of three T-fasteners were deployed using this technique. A dermatotomy was then made between the T-fasteners, and a needle was inserted into the stomach. A 0.035-inch J-wire was advanced through the needle, and fluoroscopy showed the wire curled within the stomach lumen. A serial dilator/peel-away sheath was passed over the wire into the stomach. A 16 [place] JANET gastrostomy tube was placed over the wire through the sheath and into the stomach. The sheath was removed. Intraluminal position was again confirmed with the injection of contrast, and the gastrostomy tube balloon was inflated with dilute contrast.The procedure site was dressed. CATHETER: 16 [place] JANET gastrostomy tube.. COMPLICATIONS: None. The patient tolerated the procedure well. ESTIMATED BLOOD LOSS: Less than 5 mL. CONTRAST : Isovue-300, 10 mL administered into the gastric lumen. FLUOROSCOPY TIME: 2.6 minutes. SAMPLES: None. 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 DATE: 11/26/2024. COMPARISON: PET/CT dated 10/15/2024. PHYSICIAN: Wayne Johnson CONSENT: After discussing the potential risks, benefits, and alternatives of the procedure, written informed consent was obtained. MEDICATIONS: Versed 2.5 mg IV, fentanyl 100 echogram IV, Ancef 2 g IV, 1% lidocaine subcutaneous. SEDATION: Moderate (conscious) sedation for this procedure was performed with continuous physician supervision. Medical history, physical exam, drug dosages, routes of drug administration, monitoring data, and precise times of service are documented in the medical record [facility], 'Sedative/Analgesic Administration for Diagnostic and Therapeutic Procedures'. Please see nursing flow sheets for dosage and time. DESCRIPTION OF PROCEDURE: The patient was brought to the angiography suite and placed on table in the supine position. The patient's mid and left upper abdomen were prepped and draped in the usual sterile fashion. The abdomen was evaluated with ultrasound and the liver margin was marked on the skin surface. The patient was given glucagon IV, and the stomach was inflated with air via a previously placed nasogastric tube. The skin and subcutaneous tissues overlying the stomach were infiltrated with 2% lidocaine without epinephrine. A T-fastener needle was advanced into the stomach lumen under fluoroscopic guidance, and intragastric position was confirmed by aspiration of air from the stomach lumen and injection of contrast into the stomach lumen. A total of three T-fasteners were deployed using this technique. A dermatotomy was then made between the T-fasteners, and a needle was inserted into the stomach. A 0.035-inch J-wire was advanced through the needle, and fluoroscopy showed the wire curled within the stomach lumen. A serial dilator/peel-away sheath was passed over the wire into the stomach. A 16 [place] JANET gastrostomy tube was placed over the wire through the sheath and into the stomach. The sheath was removed. Intraluminal position was again confirmed with the injection of contrast, and the gastrostomy tube balloon was inflated with dilute contrast.The procedure site was dressed. CATHETER: 16 [place] JANET gastrostomy tube.. COMPLICATIONS: None. The patient tolerated the procedure well. ESTIMATED BLOOD LOSS: Less than 5 mL. CONTRAST : Isovue-300, 10 mL administered into the gastric lumen. FLUOROSCOPY TIME: 2.6 minutes. SAMPLES: None. IMPRESSION: Successful image-guided insertion of a percutaneous gastrostomy tube. us Dave Maciel MD IR ORDERABLES Final Result * PROTIME-INR (11/26/2024 10:09 AM CDT) PROTIME 13.0 12.7 - 14.9 Seconds 11/26/2024 10:32 AM CDT [facility] INR 0.9 0.8 - 1.2 11/26/2024 10:32 AM CDT [facility] Blood Venipuncture / Unknown 11/26/2024 10:09 AM CDT 11/26/2024 10:19 AM CDT Narrative [facility] - 11/26/2024 10:32 AM CDT Expected Values for INR: DVT/PE Goal INR 2.5; range 2.0 - 3.0 Valve Replacement Tissue Goal INR 2.5; range 2.0 - 3.0 Valve Replacement Mechanical Goal INR 3.0; range 2.5 - 3.5 POST-DC Goal INR 2.5; range 2.0 - 3.0 or Goal INR 3.0; range 2.5 - 3.5 Atrial Fibrillation Goal INR 2.5; range 2.0 - 3.0 Ischemic Stroke Goal INR 2.5; range 2.0 - 3.0 us Wayne Johnson MD HEMATOLOGY ORDERABLES Final Re sult [facility] CLIA # [id number] [address] [address] [place] [address] * (ABNORMAL) CBC WITHOUT DIFFERENTIAL (11/26/2024 10:09 AM CDT) [facility] WBC 6.4 4.8 - 10.8 K/uL 11/26/2024 10:24 AM CDT [facility] RBC 4.17(L) 4.20 - 5.40 M/uL 11/26/2024 10:24 AM CDT [facility] HEMOGLOBIN 13.4 12.0 - 16.0 g/dL 11/26/2024 10:24 AM CDT [facility] HEMATOCRIT 39.8 36.0 - 46.0 % 11/26/2024 10:24 AM CDT [facility] MCV 95.4 84.0 - 103.0 fL 11/26/2024 10:24 AM CDT [facility] MCH 32.1 27.0 - 34.0 pg 11/26/2024 10:24 AM CDT [facility] MCHC 33.7 30.0 - 35.0 g/dL 11/26/2024 10:24 AM CDT [facility] PLATELETS 236 140 - 440 K/uL 11/26/2024 10:24 AM CDT [facility] MPV 10.0 8.9 - 12.8 fL 11/26/2024 10:24 AM CDT [facility] RDW 12.0 11.0 - 14.5 % 11/26/2024 10:24 AM CDT [facility] RDW-STDEV 42.3 37.0 - 54.0 fL 11/26/2024 10:24 AM CDT [facility] Blood Venipuncture / Unknown 11/26/2024 10:09 AM CDT 11/26/2024 10:19 AM CDT Wayne Johnson MD HEMATOLOGY ORDERABLES Final Re sult [facility] CLIA # [id number] [address] [address] * CYTOLOGY, NON GYNE (10/22/2024 10:14 AM CDT) CASE REPORT Medical Cytology Report Case: [id number] Authorizing Provider: Sandeep Maurer PA-C Collected: 10/22/2024 10:14 AM Ordering Location: [facility] Received: 10/22/2024 10:14 AM Ultrasound Specimen: Thyroid, left 5 2:28 PM CDT [facility] FINAL DIAGNOSIS A. Thyroid, left, FNA, cytology smears - BENIGN ([place] category 2) - Consistent with benign follicular/colloid nodule Daya Johnson MD [id number] 5 2:28 PM CDT [facility] at 1428 CDT GROSS DESCRIPTION A. Left thyroid FNA- 3 slides in 95% alcohol and 3 air dried slides submitted. Needle rinsed in Preservcyt. An extra pass was collected in ThyroSeqPreserve solution and frozen for possible ancillary molecular testing. 5 2:28 PM CDT [facility] CLINICAL INFORMATION Left thyroid nodule 5 2:28 PM CDT [facility] COMMENT The Presdo voice-activated dictation system may have been used in the creation of this report. Inherent to this system is the possibility of errors in syntax, grammar, punctuation, or other areas that could impact interpretation. If there are interpretive questions about the report, please contact the performing pathologist. Unless gross only is specified in the diagnosis, the microscopic examination substantiates the above cited diagnosis. The performance characteristics of all immunohistochemical stains cited in this report (if any) were determined by the Diagnostic Immunohistochemistry Laboratory of [facility] in compliance with CLIA'88 regulations. Some of these tests rely on the use of analyte specific reagents and are subject to specific labeling requirements by the FDA. All controls show appropriate reactivity. This testing was developed by the Diagnostic Immunohistochemistry Laboratory of [facility]. It has not been cleared or approved by the FDA. The FDA has determined that such clearance or approval is not necessary. 2:28 PM CDT [facility] Body fluid ENTIRE THYROID GLAND / Unknown 10/22/2024 10:14 AM CDT 10/22/2024 10:14 AM CDT Sandeep Maurer PA-C PATHOLOGY/CYTOLOGY LETA GOEL Final Result [facility] CLIA # [id number] [address] [place] [id number] * US GUIDED ASPIRATION (10/22/2024 8:46 AM CDT) Anatomical Region Laterality Modality Ultrasound 10/22/2024 8:46 AM CDT Impressions 10/22/2024 12:29 PM CDT IMPRESSION: Please see below. Ultrasound Guided Fine Needle Aspiration Date/Time of Exam: 10/22/2024 8:46 AM This procedure was performed and preliminary findings dictated by Sandeep Maurer PA-C. Supervision and final interpretation by Dr. Avelar. CONSENT: Risks, benefits, and alternatives of the procedure were discussed with the patient. Specific risks of image guided fine needle aspiration include, but not limited to: bleeding, infection, pain, injury to adjacent tissues/organs, and . Procedure may need to be repeated if the tissue or fluid sample obtained is non-diagnostic. Written informed consent was obtained from the patient. PROCEDURE IN DETAIL: A time out was performed to verify patient and procedure. The patient was placed in a supine position, and ultrasound was utilized to evaluate the left thyroid for the nodule or mass in question. The area was marked, prepped, and draped in the usual sterile fashion. All elements of maximal sterile barrier technique, including hand hygiene and cutaneous antisepsis with an antisepsis agent, were used. Local anesthesia was achieved with 1% lidocaine overlying the proposed needle course. Utilizing direct visualization and needle guide, 4 passes were made with a 22 gauge 3.5 inch spinal needle aspirative device with multiple fluid and debris obtained. The skin was cleansed and a sterile dressing applied. The patient tolerated the procedure without complications. ESTIMATED BLOOD LOSS: Minimal Narrative Procedure Note Ricardo Avelar MD - 10/22/2024 IMPRESSION: Please see below. Ultrasound Guided Fine Needle Aspiration Date/Time of Exam: 10/22/2024 8:46 AM This procedure was performed and preliminary findings dictated by Sandeep Maurer PA-C. Supervision and final interpretation by Dr. Avelar. CONSENT: Risks, benefits, and alternatives of the procedure were discussed with the patient. Specific risks of image guided fine needle aspiration include, but not limited to: bleeding, infection, pain, injury to adjacent tissues/organs, and . Procedure may need to be repeated if the tissue or fluid sample obtained is non-diagnostic. Written informed consent was obtained from the patient. PROCEDURE IN DETAIL: A time out was performed to verify patient and procedure. The patient was placed in a supine position, and ultrasound was utilized to evaluate the left thyroid for the nodule or mass in question. The area was marked, prepped, and draped in the usual sterile fashion. All elements of maximal sterile barrier technique, including hand hygiene and cutaneous antisepsis with an antisepsis agent, were used. Local anesthesia was achieved with 1% lidocaine overlying the proposed needle course. Utilizing direct visualization and needle guide, 4 passes were made with a 22 gauge 3.5 inch spinal needle aspirative device with multiple fluid and debris obtained. The skin was cleansed and a sterile dressing applied. The patient tolerated the procedure without complications. ESTIMATED BLOOD LOSS: Minimal us Dave Maciel MD US ORDERABLES Final Result * PET TUMOR OR INFECTION IMG W CT SKB MD (10/15/2024 3:36 PM CDT) Anatomical Region Laterality Modality Nuclear Medicine 10/15/2024 3:36 PM CDT Impressions 10/20/2024 5:36 AM CDT IMPRESSION: 1. Reported history of vocal cord neoplasm, there is no focal hypermetabolism of the larynx to correspond to reported neoplasm. 2. No visualized regional or distant metastasis. 3. Symmetric, normal sized, mildly hypermetabolic mediastinal and bilateral hilar lymph nodes the distribution of which favors reactive etiology rather than shade metastasis. 4. Bilateral thyroid nodules without overt hypermetabolism, correlation with previous ultrasound findings of 10/07/2024 recommended for risk stratification. Narrative 10/20/2024 5:36 AM CDT Exam: PET TUMOR OR INFECTION IMG W CT SKB [facility] Date/Time of Exam: 10/15/2024 3:36 PM Radiopharmaceutical: [id number] Dose: 12.0 mCi right AC IV Time of Injection: 1345 hrs Clinical Indication: Head/neck cancer, staging, Metastatic disease evaluation. 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 FDG ([id number]) PET imaging was performed at 1501 hrs approximately 76 minutes following intravenous infusion of the radiopharmaceutical agent using an integrated 16-slice PET/CT scanner. A noncontrast CT scan was performed for attenuation correction of PET data and for anatomic localization. No contrast was administered. Imaging was performed from the skull base to mid thigh levels with subsequent reconstruction of full trunk, orthogonal view slices in transverse, sagittal, and coronal projections which were reviewed along with dynamic multiimage planar and non attenuation corrected sagittal views. Blood glucose at the time of tracer injection was 82 mg/dl with normal biodistribution of tracer. The quality of this examination is acceptable with regards to count density, processed images, data display and lack of important artifacts (including but not limited to motion and attenuation artifacts). CT neck from 10/02/2024. Background blood pool activity:Max SUV 1.48 Background hepatic activity: Max SUV 2.32 HEAD/NECK: No concerning uptake within the included brain parenchyma. Reported vocal cord neoplasm without overt hypermetabolism of the vocal cords and larynx appreciated on this exam, the distal visualized projecting within the larynx may be at least partially physiologic. No concerning hypermetabolic mucosal lesions seen elsewhere within the neck. Small right thyroid nodule measures 0.8 cm with max SUV 1.9. Left thyroid nodule measures up to 2.9 x 2.7 cm with max SUV 1.8. There is mild rightward deviation of the trachea without high-grade narrowing. No hypermetabolic cervical lymph nodes. CHEST: Heart size normal without pericardial effusion. Esophagus unremarkable. There are symmetric normal size mediastinal and bilateral hilar lymph nodes with mild hypermetabolism, these symmetric distribution favors reactive etiology. Territory Sales Representative AP window lymph node (image 93) 0.7 x 1.5 cm, max SUV 2.9. No hypermetabolic pulmonary nodules. No pleural fluid collection. There is mild centrilobular emphysema scarring lung apices. ABDOMEN/PELVIS: No hyperbolic hepatic lesions. The biliary system is unremarkable. Pancreas unremarkable. Spleen is unremarkable. Adrenal glands unremarkable. Kidneys unremarkable. Pelvic visceral structures are unremarkable. There is physiologic distribution of radiotracer within bowel. MUSCULOSKELETAL: No hypermetabolic osseous lesions. There is multilevel degenerative change of the spine. Procedure Note Rodrigo Cheema MD - 10/20/2024 Exam: PET TUMOR OR INFECTION IMG W CT SKB [facility] Date/Time of Exam: 10/15/2024 3:36 PM Radiopharmaceutical: [id number] Dose: 12.0 mCi right AC IV Time of Injection: 1345 hrs Clinical Indication: Head/neck cancer, staging, Metastatic disease evaluation. 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 FDG ([id number]) PET imaging was performed at 1501 hrs approximately 76 minutes following intravenous infusion of the radiopharmaceutical agent using an integrated 16-slice PET/CT scanner. A noncontrast CT scan was performed for attenuation correction of PET data and for anatomic localization. No contrast was administered. Imaging was performed from the skull base to mid thigh levels with subsequent reconstruction of full trunk, orthogonal view slices in transverse, sagittal, and coronal projections which were reviewed along with dynamic multiimage planar and non attenuation corrected sagittal views. Blood glucose at the time of tracer injection was 82 mg/dl with normal biodistribution of tracer. The quality of this examination is acceptable with regards to count density, processed images, data display and lack of important artifacts (including but not limited to motion and attenuation artifacts). CT neck from 10/02/2024. Background blood pool activity:Max SUV 1.48 Background hepatic activity: Max SUV 2.32 HEAD/NECK: No concerning uptake within the included brain parenchyma. Reported vocal cord neoplasm without overt hypermetabolism of the vocal cords and larynx appreciated on this exam, the distal visualized projecting within the larynx may be at least partially physiologic. No concerning hypermetabolic mucosal lesions seen elsewhere within the neck. Small right thyroid nodule measures 0.8 cm with max SUV 1.9. Left thyroid nodule measures up to 2.9 x 2.7 cm with max SUV 1.8. There is mild rightward deviation of the trachea without high-grade narrowing. No hypermetabolic cervical lymph nodes. CHEST: Heart size normal without pericardial effusion. Esophagus unremarkable. There are symmetric normal size mediastinal and bilateral hilar lymph nodes with mild hypermetabolism, these symmetric distribution favors reactive etiology. Territory Sales Representative AP window lymph node (image 93) 0.7 x 1.5 cm, max SUV 2.9. No hypermetabolic pulmonary nodules. No pleural fluid collection. There is mild centrilobular emphysema scarring lung apices. ABDOMEN/PELVIS: No hyperbolic hepatic lesions. The biliary system is unremarkable. Pancreas unremarkable. Spleen is unremarkable. Adrenal glands unremarkable. Kidneys unremarkable. Pelvic visceral structures are unremarkable. There is physiologic distribution of radiotracer within bowel. MUSCULOSKELETAL: No hypermetabolic osseous lesions. There is multilevel degenerative change of the spine. IMPRESSION: 1. Reported history of vocal cord neoplasm, there is no focal hypermetabolism of the larynx to correspond to reported neoplasm. 2. No visualized regional or distant metastasis. 3. Symmetric, normal sized, mildly hypermetabolic mediastinal and bilateral hilar lymph nodes the distribution of which favors reactive etiology rather than shade metastasis. 4. Bilateral thyroid nodules without overt hypermetabolism, correlation with previous ultrasound findings of 10/07/2024 recommended for risk stratification. us Dave Maciel MD PE ORDERABLES Final Result * POC GLUCOSE (10/15/2024 1:37 PM CDT) GLUCOSE POC 82 74 - 99 mg/dL 10/15/2024 1:37 PM CDT [facility] SPECIMEN SOURCE, GLUCOSE POC Venous 10/15/2024 1:37 PM CDT [facility] Blood, whole 10/15/2024 1:37 PM CDT 10/15/2024 1:48 PM CDT us Dave Maciel MD POINT OF CARE TESTING Final Res ult [facility] CLIA # [id number] [address] [address] * PROCEDURE PHOTOGRAPHS (10/13/2024 3:09 AM CDT) us Provider Scanning PROCEDURE/MINOR SURGICAL ORDER SHARMIN Final Result * TELEMETRY REPORT (10/13/2024 3:09 AM CDT) us Provider Scanning ECG ORDERABLES Final Result * PATHOLOGY (10/08/2024 10:17 AM CDT) CASE REPORT Surgical Pathology Report Case: [id number] Authorizing Provider: Dave Maciel MD Collected: 10/08/2024 10:17 AM Ordering Location: [facility] E Received: 10/08/2024 12:24 PM [place] Pathologist: Alfonso Jarrett MD Specimen: Vocal Cord, left lesion 2:02 PM CDT [facility] FINAL DIAGNOSIS A. Left vocal cord lesion, biopsy - Invasive well-differentiated squamous cell carcinoma REV:MEDICAL DETAIL REPRESENTATIVE Alfonso Jarrett MD [id number] 2:02 PM CDT [facility] at 1402 CDT GROSS DESCRIPTION Received in formalin labeled [place] -left vocal cord lesion are 4 abel-pink soft tissue fragments, 0.3 cm in greatest dimension. The specimen is submitted entirely in A1. Calista Juarez 5 2:02 PM CDT [facility] OPERATIVE PROCEDURE 1: LARYNGOSCOPY 5 2:02 PM CDT [facility] CLINICAL INFORMATION A LEFT VOCAL CORD LESION. TIME OUT OF BODY:1017 LEFT VOCAL CORD LESION. TIME OUT OF BODY:1017 Vocal cord nodule [J38.2] J38.2-Vocal cord nodule 5 2:02 PM CDT [facility] COMMENT The [employer] voice-activated dictation system may have been used in the creation of this report. Inherent to this system is the possibility of errors in syntax, grammar, punctuation, or other areas that could impact interpretation. If there are interpretive questions about the report, please contact the performing pathologist. Unless gross only is specified in the diagnosis, the microscopic examination substantiates the above cited diagnosis. The performance characteristics of all immunohistochemical stains cited in this report (if any) were determined by the [facility] of [facility] in compliance with CLIA'88 regulations. Some of these tests rely on the use of analyte specific reagents and are subject to specific labeling requirements by the FDA. All controls show appropriate reactivity. This testing was developed by the [facility] of [facility]. It has not been cleared or approved by the FDA. The FDA has determined that such clearance or approval is not necessary. 2:02 PM CDT [facility] Tissue (Vocal Cord) Collection / Unknown 10/08/2024 10:17 AM CDT 10/08/2024 12:24 PM CDT Comment:LEFT VOCAL CORD LESI ON. TIME OUT OF BODY:1017 us Dave Maciel MD PATHOLOGY/CYTOLOGY ORDERABLES F inal Result [facility] CLIA # [id number] [address] [address] [place] [address] * DC ANES INSERT ENDOTRACHEAL AIRWAY (10/08/2024 10:07 AM CDT) Narrative Charlie Pepe AA-C - 10/08/2024 10:07 AM CDT Charlie Pepe AA-C 10/08/2024 10:17 AM Airway Date/Time: 10/08/2024 10:07 AM Location: OR Plan: elective intubation Patient Identity Confirmed by: Verbally with patient and armband Airway: not difficult Staffing Performed: Student NA/AA Authorized by: Branden May III, MD Performed by: Charlie Pepe AA-C Indications and Patient Condition: Indications for Airway Management: Anesthesia Sedation Level: general anesthesia Preoxygenated: yes Patient Position: Sniffing Mask Difficulty Assessment: 0 - not attempted Plan to extubate at end of case: Yes Final Airway Details: Final Airway Type: Endotracheal airway ETT Cuffed: Yes Technique Used for Successful ETT Placement: Direct laryngoscopy Devices/Methods Used in Placement: Intubating stylet Blade Type: curved blade Blade Size: 3 Insertion Site: Oral ETT Size (mm): 5.0 Measured from: Teeth ETT to Teeth (cm): 22 Tube secured with: Tape Placement Verified by: auscultation, end tidal CO2 and chest rise Cormack-Lehane Classification: Grade IIa - partial view of glottis Number of Attempts at Approach: 1 Additional Procedure Information: atraumatic Additional Comments: Household Cook tube us Branden May III, MD PROCEDURE/MINOR SURGICAL ORDERABLES Final Result * US HEAD NECK TISSUES (10/07/2024 2:21 PM CDT) Anatomical Region Laterality Modality Head Ultrasound 10/07/2024 2:21 PM CDT Impressions 10/08/2024 9:25 AM CDT IMPRESSION: Bilateral thyroid nodules as above. Narrative 10/08/2024 9:25 AM CDT Exam: US HEAD NECK TISSUES Date and time of exam: 10/07/2024 2:21 PM Reason for exam: Thyroid nodule. Comparison: 10/02/2024. Findings: Right Thyroid Size: 1.7 x 5.2 x 1.5 cm. Volume 6.6 mL. Left Thyroid Size: 1.8 x 7.3 x 2.2 cm. Volume 13.7 mL. Parenchyma is heterogeneous with multiple nodules. The parenchymal vascularity is within normal limits. Nodule 1: Measures 2.2 x 1.2 x 1.4 cm in the superior lateral right thyroid gland with internal color flow.. Composition: Mixed cystic and solid. Echogenicity: Hyperechoic or Isoechoic. Shape: Fngln-yodb-emll. Margin: Smooth. Echogenic Foci: Macrocalcifications. ACR TIRADS 3 (Mildly Suspicious). FNA if greater than or equal to 2.5 cm. Follow if greater than or equal to 1.5 cm. Nodule 2: Measures 1.0 x 0.5 x 0.9 cm in the medial right thyroid lobe/isthmus with internal color flow.. Composition: Solid or almost completely solid. Echogenicity: Hyperechoic or Isoechoic. Shape: Cvqom-towl-kpat. Margin: Smooth. Echogenic Foci: Macrocalcifications. ACR TIRADS 4 (Moderately Suspicious) FNA if greater than or equal to 1.5 cm. Follow up if greater than or equal to 1.0 cm. Nodule 3: Measures 1.9 x 1.9 x 2.0 cm in the mid lateral left thyroid lobe with internal color flow.. Composition: Solid or almost completely solid. Echogenicity: Hyperechoic or Isoechoic. Shape: Ifens-wuxb-tsgw. Margin: Smooth. Echogenic Foci: None or large comet-tail artifacts. ACR TIRADS 3 (Mildly Suspicious). FNA if greater than or equal to 2.5 cm. Follow if greater than or equal to 1.5 cm. Nodule 4: Measures 3.2 x 3.0 x 3.5 cm in the mid to inferior left thyroid lobe with internal color flow.. Composition: Solid or almost completely solid. Echogenicity: Hyperechoic or Isoechoic. Shape: Vbyxo-gmja-iero. Margin: Smooth. Echogenic Foci: None or large comet-tail artifacts. ACR TIRADS 3 (Mildly Suspicious). FNA if greater than or equal to 2.5 cm. Follow if greater than or equal to 1.5 cm. Procedure Note Trent Noe MD - 10/08/2024 Exam: US HEAD NECK TISSUES Date and time of exam: 10/07/2024 2:21 PM Reason for exam: Thyroid nodule. Comparison: 10/02/2024. Findings: Right Thyroid Size: 1.7 x 5.2 x 1.5 cm. Volume 6.6 mL. Left Thyroid Size: 1.8 x 7.3 x 2.2 cm. Volume 13.7 mL. Parenchyma is heterogeneous with multiple nodules. The parenchymal vascularity is within normal limits. Nodule 1: Measures 2.2 x 1.2 x 1.4 cm in the superior lateral right thyroid gland with internal color flow.. Composition: Mixed cystic and solid. Echogenicity: Hyperechoic or Isoechoic. Shape: Hlben-mpms-ljtl. Margin: Smooth. Echogenic Foci: Macrocalcifications. ACR TIRADS 3 (Mildly Suspicious). FNA if greater than or equal to 2.5 cm. Follow if greater than or equal to 1.5 cm. Nodule 2: Measures 1.0 x 0.5 x 0.9 cm in the medial right thyroid lobe/isthmus with internal color flow.. Composition: Solid or almost completely solid. Echogenicity: Hyperechoic or Isoechoic. Shape: Vahke-yhwv-jjmj. Margin: Smooth. Echogenic Foci: Macrocalcifications. ACR TIRADS 4 (Moderately Suspicious) FNA if greater than or equal to 1.5 cm. Follow up if greater than or equal to 1.0 cm. Nodule 3: Measures 1.9 x 1.9 x 2.0 cm in the mid lateral left thyroid lobe with internal color flow.. Composition: Solid or almost completely solid. Echogenicity: Hyperechoic or Isoechoic. Shape: Nrnsq-eddt-auvh. Margin: Smooth. Echogenic Foci: None or large comet-tail artifacts. ACR TIRADS 3 (Mildly Suspicious). FNA if greater than or equal to 2.5 cm. Follow if greater than or equal to 1.5 cm. Nodule 4: Measures 3.2 x 3.0 x 3.5 cm in the mid to inferior left thyroid lobe with internal color flow.. Composition: Solid or almost completely solid. Echogenicity: Hyperechoic or Isoechoic. Shape: Nhtro-lbju-vxjr. Margin: Smooth. Echogenic Foci: None or large comet-tail artifacts. ACR TIRADS 3 (Mildly Suspicious). FNA if greater than or equal to 2.5 cm. Follow if greater than or equal to 1.5 cm. IMPRESSION: Bilateral thyroid nodules as above. us Dave Maciel MD US ORDERABLES Final Result * CT SOFT TISSUE NECK W CONTRAST (10/02/2024 7:20 AM CDT) Anatomical Region Laterality Modality Neck Computed Tomogra phy 10/02/2024 7:12 AM CDT Impressions 10/02/2024 11:32 AM CDT IMPRESSION: Please see below. Axial images obtained the neck during IV contrast demonstration. Contrast: 100 mL of Isovue-300. Reason For Exam: Vocal cord nodule or polyp. Diagnosis: Vocal cord nodule. Comparison: None Findings: Mild anterior nasal septal deviation to the right. Normal bilateral inferior maxillary sinus mucosal thickening. The orbits are normal. No fluid in the middle ear cavities or mastoid air cells. Normal visualized brain parenchyma. The pharyngeal mucosal spaces are symmetric. The tongue, tongue base and larynx are unremarkable. The vocal cords are opposed during the exam, limiting anatomic detail. No well-defined mass or polyp. The supraglottic and subglottic larynx are unremarkable. Normal bilateral parotid and submandibular glands. Right mid thyroid nodule and two small marginal calcifications. Additional calcination at the right medial thyroid isthmus. Enlarged left thyroid lobe secondary to a prominent heterogeneous attenuating cystic and solid mass and or multiple adjacent nodules measuring 3.6 cm AP by 3.4 cm transverse by 4.6 cm craniocaudad. No prevertebral or retropharyngeal edema or fluid. No enlarged cervical lymph nodes. Normal common and internal carotid arteries. The visualized upper lungs demonstrate biapical pleural parenchymal scarring and minimal hyperlucent emphysematous changes. Extensive degenerative changes at C4-5, C5-6 and C6-7 and reversal of the cervical lordosis. Slight anterior subluxation at C3-4. IMPRESSION: 1. No well-defined focal cord mass or polyp. Obtain direct visualization as clinically indicated. 2. No evidence of an acute inflammatory soft tissue process, well-defined neck mass or lymphadenopathy. 3. Bilateral thyroid nodules, greater on the left. Consider thyroid ultrasound correlation. Narrative Procedure Note Viktor Kumari MD - 10/02/2024 IMPRESSION: Please see below. Axial images obtained the neck during IV contrast demonstration. Contrast: 100 mL of Isovue-300. Reason For Exam: Vocal cord nodule or polyp. Diagnosis: Vocal cord nodule. Comparison: None Findings: Mild anterior nasal septal deviation to the right. Normal bilateral inferior maxillary sinus mucosal thickening. The orbits are normal. No fluid in the middle ear cavities or mastoid air cells. Normal visualized brain parenchyma. The pharyngeal mucosal spaces are symmetric. The tongue, tongue base and larynx are unremarkable. The vocal cords are opposed during the exam, limiting anatomic detail. No well-defined mass or polyp. The supraglottic and subglottic larynx are unremarkable. Normal bilateral parotid and submandibular glands. Right mid thyroid nodule and two small marginal calcifications. Additional calcination at the right medial thyroid isthmus. Enlarged left thyroid lobe secondary to a prominent heterogeneous attenuating cystic and solid mass and or multiple adjacent nodules measuring 3.6 cm AP by 3.4 cm transverse by 4.6 cm craniocaudad. No prevertebral or retropharyngeal edema or fluid. No enlarged cervical lymph nodes. Normal common and internal carotid arteries. The visualized upper lungs demonstrate biapical pleural parenchymal scarring and minimal hyperlucent emphysematous changes. Extensive degenerative changes at C4-5, C5-6 and C6-7 and reversal of the cervical lordosis. Slight anterior subluxation at C3-4. IMPRESSION: 1. No well-defined focal cord mass or polyp. Obtain direct visualization as clinically indicated. 2. No evidence of an acute inflammatory soft tissue process, well-defined neck mass or lymphadenopathy. 3. Bilateral thyroid nodules, greater on the left. Consider thyroid ultrasound correlation. us Dave Maciel MD CT ORDERABLES Final Result * XR CHEST PA AND LATERAL 2 VW (10/02/2024 7:09 AM CDT) Anatomical Region Laterality Modality Chest Computed Radiogr aphy 10/02/2024 7:09 AM CDT Impressions 10/02/2024 8:27 AM CDT IMPRESSION: See below. Exam: XR CHEST PA AND LATERAL 2 VW Date/Time of Exam: 10/02/2024 7:09 AM Reason For Exam: See Diagnosis. Diagnosis: Pre-operative clearance. Prior: None Findings: The cardiomediastinal silhouette is normal. No acute focal airspace disease, pleural effusion, or pneumothorax. No acute osseous abnormality. IMPRESSION: No acute cardiopulmonary disease. Narrative Procedure Note Francois Moon DO - 10/02/2024 IMPRESSION: See below. Exam: XR CHEST PA AND LATERAL 2 VW Date/Time of Exam: 10/02/2024 7:09 AM Reason For Exam: See Diagnosis. Diagnosis: Pre-operative clearance. Prior: None Findings: The cardiomediastinal silhouette is normal. No acute focal airspace disease, pleural effusion, or pneumothorax. No acute osseous abnormality. IMPRESSION: No acute cardiopulmonary disease. us Dave Maciel MD DIAGNOSTIC IMAGING ORDERABLES F inal Result from Last 3 Months Insurance [employer] EXCHANGE [id number] [address] [id number] Advance Directives For more information, please contact: [phone] Documents on File Type Date Recorded Patient Territory Sales Representative Expl anation Advance Directive POA 12/01/2024 3:14 PM A dvance Directive POA * Full Code (Latest Code Status on File) Date Activated Date Inactivated Comments 12/01/2024 10:57 AM * Full Code Date Activated Date Inactivated Comments 10/08/2024 9:15 AM 10/08/2024 2:16 PM
[2024-12-27 09:09] VITALS: BP 143/80; PULSE 70; RESP 14; TEMP 36.4; O2SAT 99; BMI 18.0
--- NOTE | 2024-12-27 09:25 | XRR_ITS ---
PROCEDURE INFORMATION: Exam: XR Abdomen Exam date and time: 12/27/2024 9:32 AM Age: 64 years old Clinical indication: Device placement; Gi device; Gastrostomy, other; Prior surgery; Surgery date: <1 month; Surgery type: G tube placement; Additional info: Peg tube confirmation; 30ml gastrograffin injected through gtube/flushed with 20ml water TECHNIQUE: Imaging protocol: Radiologic exam of the abdomen. Views: Frontal supine view of the abdomen. 1 View. COMPARISON: CT abdomen pelvis wo/w [id number] 01/19/2023 9:19 AM FINDINGS: Tubes, catheters and devices: There is a G-tube present with its tip overlying the left upper quadrant. There is oral contrast within the G-tube as well as within the stomach. No definite extravasation of contrast is identified on this single frontal image. Gastrointestinal tract: No dilated loops of large or small bowel is appreciated. There is a moderate amount of stool within the colon. Bones/joints: Unremarkable. XR/XR KUB portable 64044 IMPRESSION: 1. No acute findings. Please see above comments.
--- NOTE | 2024-12-27 09:26 | W.ED.GENADLT ---
HPI - General Adult General: Chief complaint: General Medical Stated complaint: feeding tube check Time Seen by Provider: 12/27/24 09:14 History of Present Illness: 64-year-old female presents emergency room she is concerned she may have dislodged her PEG tube. She has a history of laryngeal cancer had a PEG tube placed on November 26 at [facility] in [place] she is camping in the area this weekend. She has not had any drainage or bleeding from the tube the flange on the outside of the tube moved a bit and she was concerned she had displaced it. She has not had any leakage from around the os of the tube in the abdominal wall. Associated symptoms: Deny chest pain or dyspnea Related Data Home Medications ?Medication ?Instructions ?Recorded ?Confirmed ascorbic acid (vitamin C) 100 mg 100 mg PO DAILY 09/02/19 08/23/20 tablet cholecalciferol (vitamin D3) 125 5,000 unit PO DAILY 09/02/19 08/23/20 mcg (5,000 unit) capsule coenzyme Q10 10 mg capsule (Co 10 mg PO TID 09/02/19 08/23/20 Q-10) magnesium oxide 400 mg PO DAILY 09/02/19 08/23/20 multivitamin 1 tab PO DAILY 09/02/19 08/23/20 omega-3 fatty acids 1,000 mg 1,000 mg PO BID 09/02/19 08/23/20 capsule (Fish Oil Concentrate) thyroid (pork) 15 mg tablet 30 mg PO DAILY 09/02/19 08/23/20 ([place] Thyroid) Previous Rx's ?Medication ?Instructions ?Recorded levofloxacin 500 mg tablet 500 mg PO DAILY 7 days #7 tabs 12/10/24 Allergies Allergy/AdvReac Type Severity Reaction Status Date / Time codeine Allergy Unknown Unknown Verified 12/27/24 09:14 metoprolol Allergy Unknown Unknown Verified 12/27/24 09:14 Review of Systems Const: Denies: fever(s) or chills Card: Denies: chest pain Resp: Denies: dyspnea GI: Denies: abdominal pain PFSH ED PFSH: Medical History Anxiety Hypothyroidism Hyperlipidemia Atrial fibrillation Family History Grandmother Cancer Father Cancer Parkinson disease Mother Lung disease Denies family history of Diabetes CAD (coronary artery disease) Clotting disorder Dementia Chronic kidney disease (CKD) Suicide Anesthesia complication Bleeding disorder Stroke Social History Smoking and tobacco/nicotine status: current every day tobacco/nicotine user Alcohol intake: current Alcohol intake frequency: holidays/special occasions only Substance/Drug Use: never Physical Exam Const: COMMON NORMALS: no acute distress GENERAL APPEARANCE: cooperative and comfortable ORIENTATION/CONSCIOUSNESS: Yes awake, Yes oriented to person, Yes oriented to place and Yes oriented to time HENMT: COMMON NORMALS: normocephalic, atraumatic and hearing grossly normal bilaterally HEAD & SCALP: normocephalic and atraumatic Resp: COMMON NORMALS: normal respiratory effort, No retractions, No use of accessory muscles and clear to auscultation bilaterally AUSCULTATION: clear to auscultation bilaterally Cardio: COMMON NORMALS: regular rate, regular rhythm and No murmurs present (Cardio) RATE: regular rate RHYTHM: regular rhythm GI: COMMON NORMALS: Soft to palpation and No hepatosplenomegaly present AUSCULTATION: Yes normoactive bowel sounds PALPATION: Yes Soft to palpation, No Tenderness to palpation present (GI), No Guarding due to palpation present (GI) and Yes No hepatosplenomegaly present Extremity: COMMON NORMALS: normal to inspection, capillary refill normal, no clubbing, cyanosis or edema, no calf tenderness and no pedal edema Neuro: SENSORIUM/ORIENTATION: Yes oriented to person, Yes oriented to place and Yes oriented to time Skin: COMMON NORMALS: no rashes or lesions noted GENERAL SKIN EXAM: no rashes or lesions noted Course Vital Signs: Vital signs: Vital Signs Temperature 97.5 F L 12/27/24 09:09 Pulse Rate 70 12/27/24 09:09 Respiratory Rate 14 12/27/24 09:09 Blood Pressure 143/80 12/27/24 09:09 Pulse Oximetry 99 12/27/24 09:09 MDM - General Adult Medical Decision Making Adjusted the flanges to tighten slightly on the exterior portion of the tube. KUB after Gastrografin infused to the tube confirmed placement discharge home continue routine cares. XR interpretation done by ED provider, pending radiology final review ED provider radiology interpretation(s): Gastrografin diffuses into the stomach rugae appropriately on KUB no sign of any pooling under the skin. Discharge Plan Discharge Patient Disposition: Home Clinical Impression: PEG tube malfunction Condition: Stable Prescriptions: No Action magnesium oxide 400 mg magnesium capsule 400 mg PO DAILY cholecalciferol (vitamin D3) 125 mcg (5,000 unit) capsule 5,000 unit PO DAILY omega-3 fatty acids [Fish Oil Concentrate] 1,000 mg capsule 1,000 mg PO BID ascorbic acid (vitamin C) 100 mg tablet 100 mg PO DAILY coenzyme Q10 [Co Q-10] 10 mg capsule 10 mg PO TID multivitamin Tablet 1 tab PO DAILY thyroid (pork) [[place] Thyroid] 15 mg tablet 30 mg PO DAILY levofloxacin 500 mg tablet 500 mg PO DAILY 7 Days Qty: 7 0RF Discharge Orders: Discharge ED (Routine); Ordered 12/27/24 Ordered By: Jose Mora Referrals: Enrico Bunch, [Primary Care Provider, Family Practice] Discharge Diet: Usual diet Discharge Activity: Resume usual activity Patient Instructions: Opioid Safety, Pain Management, Patient Portal & Brandy Instructions Activity Restrictions/Additional Instructions: Thank you for choosing [facility] for your healthcare needs today. It is very important that you follow up as instructed or that you return to the Emergency Department should you have concerns or if your condition changes or worsens in any way. You were seen in the emergency room with a concern regarding your PEG tube. After infusing Gastrografin and taking x-ray we were able to confirm its in the proper place. Continue your routine use and care of the tube follow-up with your primary care doctor and oncology team. Print Language: Kazakh Coding Level of Care Code ED Pharmacy Informatics Manager for Tyrone Benítez
[2024-12-27 09:53] VITALS: BP 130/72; PULSE 52; O2SAT 99
== END 2024-12-27 09:57 | disposition home or self-care (01) ==
PROVIDERS: Emergency Provider Family Medicine; PCP Electrodiagnostic Medicine
DX: K94.23 Gastrostomy malfunction (principal); E03.9 Hypothyroidism, unspecified; E78.5 Hyperlipidemia, unspecified; I48.91 Unspecified atrial fibrillation; F17.200 Nicotine dependence, unspecified, uncomplicated; Z85.21 Personal history of malignant neoplasm of larynx; Z79.899 Other long term (current) drug therapy; Z88.5 Allergy status to narcotic agent; Z88.8 Allergy status to other drugs, medicaments and biological substances
CPT/HCPCS: 74018; 99283; Q9963

== ENCOUNTER 2025-01-05 12:47 | Oncology outpatient (recurring) (ONCR) | payer OTHER, SELFPAY ==
--- NOTE | 2024-12-09 13:48 | ONCRAD TMN_ITS ---
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 ID: GlotticLarynx, Energy: 6X, Dose/Fx (cGy): 225, #Fx: , Dose Correction (cGy): 0, Total Dose Delivered (cGy): 2,025, Start Date: 11/27/2024, Elapsed Days: 12 Reason for visit: The patient is being seen today as part of their regularly scheduled weekly on treatment visits to assess for acute toxicities from radiotherapy. Review of Systems: No voice complaints. Weight up 2 pounds. Doing speech exercises at this time. Utilizing her own homemade skin creams. Vital Signs: Performed on 12/09/2024 1:18 PM BMI - 18.388 kg/m2 (low), Height - 67 in, Weight - 117.4 lbs, Temperature - 96.4 f, Pulse - 57 /min (low), Respiration - 18 /min, O2 Sat - 99 %, Pain - 0, Fatigue - 0 and BP - 132/ 78 mm(hg). Physical Exam: AAOx3. Skin intact. Voice normal Imaging: Radiation therapy imaging related to accurate target localization (i.e. KV, MV and CBCT) was reviewed. Appropriate changes, if any, were made to ensure treatment accuracy. Plan: Continue XRT Continue creams. Signed by: Arnel Jade 12/09/2024 1:46:29 PM
--- NOTE | 2024-12-10 13:50 | ONCRAD TMN_ITS ---
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 ID: GlotticLarynx, Energy: 6X, Dose/Fx (cGy): 225, #Fx: , Dose Correction (cGy): 0, Total Dose Delivered (cGy): 2,250, Start Date: 11/27/2024, Elapsed Days: 13 Reason for visit: The patient is being seen today as part of their regularly scheduled weekly on treatment visits to assess for acute toxicities from radiotherapy. Review of Systems: Patient saw the surgeon who put in her feeding tube yesterday. He stated that they would not order the antibiotic to get her oncology group to do it. She does not see medical oncology so she asked us to provide an antibiotic. We did advise that we are not the surgeons but if she wanted of medication it may or may not be the right 1. Rx of Levaquin 500 mg once daily x 7 days to be called into [facility]. Vital Signs: WEIGHT: 117.8 Physical Exam: AAOx3. Skin w/o drainage at this time. Imaging: Radiation therapy imaging related to accurate target localization (i.e. KV, MV and CBCT) was reviewed. Appropriate changes, if any, were made to ensure treatment accuracy. Plan: Continue XRT Levaquin 500 mg #7 1 daily till finished with no refills to [facility]. Signed by: Arnel Jade 12/10/2024 1:48:36 PM
--- NOTE | 2024-12-16 14:01 | ONCRAD TMN_ITS ---
Radiation Oncology Weekly Treatment Management Patient: Gideon Evans MR#: [id number] : 1960 Attending Physician: Dr. 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 ID: GlotticLarynx, Energy: 6X, Dose/Fx (cGy): 225, #Fx: , Dose Correction (cGy): 0, Total Dose Delivered (cGy): 2,925, Start Date: 11/27/2024, Elapsed Days: Reason for visit: The patient is being seen today as part of their regularly scheduled weekly on treatment visits to assess for acute toxicities from radiotherapy. Review of Systems: Some altered taste. Gargling with salt and soda. PEG got infected now on antibiotics. Previous PEG site pain resolved with stitch removal. Not smoking. Swallowing ok. Vital Signs: Performed on 12/16/2024 1:29 PM BMI - 17.949 kg/m2 (low), Height - 67 in, Weight - 114.6 lbs, Temperature - 97.9 f, Pulse - 73 /min, Respiration - 17 /min, O2 Sat - 97 %, Pain - 0, Fatigue - 0 and BP - 116/ 75 mm(hg). Physical Exam: no laryngeal erythema Imaging: Radiation therapy imaging related to accurate target localization (i.e. KV, MV and CBCT) was reviewed. Appropriate changes, if any, were made to ensure treatment accuracy. Plan: Good tolerance of treatment. Continue as planned. Signed by: Dr. Charlie Ballesteros 12/16/2024 2:00:16 PM
--- NOTE | 2024-12-23 16:59 | ONCRAD TMN_ITS ---
Radiation Oncology Weekly Treatment Management Patient: Gideon Evans MR#: [id number] : 1960 Attending Physician: Dr. 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 ID: GlotticLarynx, Energy: 6X, Dose/Fx (cGy): 225, #Fx: , Dose Correction (cGy): 0, Total Dose Delivered (cGy): 4,050, Start Date: 11/27/2024, Elapsed Days: 26 Reason for visit: The patient is being seen today as part of their regularly scheduled weekly on treatment visits to assess for acute toxicities from radiotherapy. Review of Systems: Hoarseness is worse. Gargling with salt and soda. Active. Swallowing ok. Vital Signs: Performed on 12/23/2024 12:59 PM BMI - 18.231 kg/m2 (low), Height - 67 in, Weight - 116.4 lbs, Temperature - 97.1 f, Pulse - 61 /min, Respiration - 16 /min, O2 Sat - 99 %, Pain - 0, Fatigue - 0 and BP - 119/ 72 mm(hg). Physical Exam: omitted Imaging: Radiation therapy imaging related to accurate target localization (i.e. KV, MV and CBCT) was reviewed. Appropriate changes, if any, were made to ensure treatment accuracy. Plan: good tolerance of treatment. Continue as planned. Signed by: Dr. Charlie Ballesteros 12/23/2024 4:58:41 PM
--- NOTE | 2024-12-30 13:33 | ONCRAD TMN_ITS ---
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 ID: GlotticLarynx, Energy: 6X, Dose/Fx (cGy): 225, #Fx: , Dose Correction (cGy): 0, Total Dose Delivered (cGy): 5,175, Start Date: 11/27/2024, Elapsed Days: 33 Reason for visit: The patient is being seen today as part of their regularly scheduled weekly on treatment visits to assess for acute toxicities from radiotherapy. Review of Systems: Significant hoarseness. Speech therapy put her on total voice rest. She went camping for 3 days and used it a lot. She notes significant coughing spells when trying to talk. She wishes [facility] Vital Signs: Performed on 12/30/2024 12:47 PM BMI - 18.168 kg/m2 (low), Height - 67 in, Weight - 116 lbs, Temperature - 97.9 f, Pulse - 83 /min, Respiration - 18 /min, O2 Sat - 96 %, Pain - 7, Fatigue - 0 and BP - 101/ 61 mm(hg)(/low). Physical Exam: AAO x3. Very hoarse. Skin intact w/o erythema. Imaging: Radiation therapy imaging related to accurate target localization (i.e. KV, MV and CBCT) was reviewed. Appropriate changes, if any, were made to ensure treatment accuracy. Plan: Continue XRT Rx for [facility] and 3 refills take as needed Rx to [facility]. Signed by: Arnel Jade 12/30/2024 1:32:40 PM
--- NOTE | 2025-01-06 13:47 | N.ONRD TS_ITS ---
Radiation Oncology Treatment Summary Patient: Gideon Evans MR#: [id number] : 1960 Age: 64 Sex: Female Dictated by: Dr. 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 ID: GlotticLarynx, Energy: 6X, Dose/Fx (cGy): 225, #Fx: , Dose Correction (cGy): 0, Total Dose Delivered (cGy): 6,300, Start Date: 11/27/2024, End Date: 01/06/2025, Elapsed Days: 40 Vital Signs: Performed on 01/06/2025 1:20 PM BMI - 17.761 kg/m2 (low), Height - 67 in, Weight - 113.4 lbs, Temperature - 98 f, Pulse - 63 /min, Respiration - 17 /min, O2 Sat - 99 %, Pain - 0, Fatigue - 0 and BP - 113/ 83 mm(hg). Clinical Summary: The patient tolerated RT well. WT MAINTINED. Hoarseness remains and she had been hoarse since July of this year. Increased hoarseness during treatment. She understands that her baseline will be the hoarseness that she started with in treatment. Plan: End of treatment today. Continue on the above medication until the skin reaction resolves. Follow up in one month on February 05, 2025 at 1300 hrs. or sooner if need be. She is going to call her surgeon to have her feeding tube removed and we certainly have no reason not to allow that to happen at this time. Signed by: Arnel Jade>01/06/2025 1:46:06 PM <<Signature on File>>
== END 2025-01-08 23:59 | disposition home or self-care (01) ==
PROVIDERS: PCP Electrodiagnostic Medicine; Visit Provider Radiology Radiation Oncology
DX: Z51.0 Encounter for antineoplastic radiation therapy (principal); C32.0 Malignant neoplasm of glottis
CPT/HCPCS: 77336; 77386; 77387; 77412

== ENCOUNTER → 2025-01-26 12:46 | Outpatient (BNVA) | payer MEDICARE, SELFPAY | PROVIDERS: PCP Electrodiagnostic Medicine; Visit Provider Student in an Organized Health Care Education/Training Program | DX: C32.9 Malignant neoplasm of larynx, unspecified (principal); Z93.1 Gastrostomy status | CPT/HCPCS: 99204 ==

== ENCOUNTER 2025-02-05 12:39 | Oncology outpatient (recurring) (ONCR) | payer MEDICARE, SELFPAY ==
--- NOTE | 2025-02-05 13:21 | ONCRAD EPV_ITS ---
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 She was recently's scoped and self reported there was nothing abnormal found. She complains of occasional cough and that is related most likely to the loss of mucous glands in that segment of the treatment field. Her voice is much improved. Current Medications: [place] Thyroid replacement, magnesium oxide 400 mg magnesium capsule 400 mg PO DAILY cholecalciferol (vitamin D3) 125 mcg (5,000 unit) capsule 5,000 unit PO DAILY omega-3 fatty acids [Fish Oil Concentrate] 1,000 mg capsule 1,000 mg PO BID ascorbic acid (vitamin C) 100 mg tablet 100 mg PO DAILY coenzyme Q10 [Co Q-10] 10 mg capsule 10 mg PO TID multivitamin Tablet 1 tab PO DAILY thyroid (pork) [[place] Thyroid] 15 mg tablet 30 mg PO DAILY levofloxacin 500 mg tablet 500 mg PO DAILY 7 Days Qty: 7 0RF Allergies: codeine, alpha-gal Current Complaints / Review of Systems: . As above Vital Signs: Performed on 02/05/2025 1:01 PM BMI - 18.168 kg/m2 (low), Height - 67 in, Weight - 116 lbs, Temperature - 97.3 f, Pulse - 65 /min, Respiration - 16 /min, O2 Sat - 98 %, Pain - 0, Fatigue - 0 and BP - 129/ 80 mm(hg). Physical Exam: General: Alert and oriented x 3. No acute distress. HEENT: Normocephalic, atraumatic. Extraocular Movements Intact: Pupils Equal, Round, Reactive to Light and Accommodation: Sclerae anicteric. Oral cavity is clear without lesions, masses or ulcers. NECK: Supple without supraclavicular or jugular lymphadenopathy. LUNGS: Clear to auscultation bilaterally without rales, rhonchi or wheeze. HEART: Regular rate and rhythm, normal S1 and S2 without murmur, gallop or rub. MUSCULOSKELETAL: No tenderness or percussion pain over the axial skeleton, scapulae or pelvis. ABDOMEN: Soft, nontender, nondistended without masses or organomegaly. Bowell sounds are present. Healing feeding tube removal site that does not show any signs of infection EXTREMITIES: No peripheral edema is identified. Limited motor and sensory examination are grossly intact and symmetric bilaterally. NEUROLOGIC: Cranial nerves II ???XII are grossly intact. Normal sensation, strength 5/5 in all extremities, normal gait, no ataxia. Performance Status: KPS 90 Lab: None pending. Pathology: Primary, c32.0 - malignant neoplasm of glottis, Diagnosed 11/19/2024 (active) . Imaging: See HPI Impression: SCC glottic larynx Plan: Continue follow-up with ENT RTC in 3 months or sooner if need be. Signed by: 02/05/2025 1:20:01 PM <<Signature on File>> Time spent with patient: CPT Code: CPT Code:
== END 2025-02-08 23:59 | disposition home or self-care (01) ==
PROVIDERS: PCP Electrodiagnostic Medicine; Visit Provider Radiology Radiation Oncology
DX: C32.0 Malignant neoplasm of glottis (principal)
CPT/HCPCS: 99024

== ENCOUNTER 2025-05-06 09:40 | Oncology outpatient (recurring) (ONCR) | payer MEDICARE, SELFPAY ==
--- NOTE | 2025-05-06 10:59 | ONCRAD EPV_ITS ---
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 ID: GlotticLarynx, Energy: 6X, Dose/Fx (cGy): 225, #Fx: , Dose Correction (cGy): 0, Total Dose Delivered (cGy): 6,300, Start Date: 11/27/2024, End Date: 01/06/2025, Elapsed Days: 40 Current History: This is a pleasant 65-year-old female who is now 4 months status post definitive XRT to the glottic larynx. Her voice has returned to a normal. No hoarseness has been noted. Patient gets scoped every 3 months and recently noted by Dr. Downs to have a little erythema on 1 cord. Current Medications: ascorbic acid (vitamin C) 100 mg PO DAILY cholecalciferol (vitamin D3) 5,000 units PO DAILY coenzyme Q10 (Co Q-10) 10 mg PO TID levofloxacin 500 mg PO DAILY 7 days lidocaine HCl 2% (Lidocaine Viscous) 5 mL mucous membrane Q6H PRN magnesium oxide 400 mg PO DAILY multivitamin 1 tab PO DAILY omega-3 fatty acids (Fish Oil Concentrate) 1,000 mg PO BID thyroid (pork) ([place] Thyroid) 30 mg PO DAILY Allergies: codeine Allergy (Unknown) metoprolol Allergy (Unknown) Unknown Current Complaints / Review of Systems: As above Vital Signs: Performed on 05/06/2025 10:02 AM BMI - 18.012 kg/m2 (low), Height - 67 in, Weight - 115 lbs, Temperature - 98.3 f, Pulse - 64 /min, Respiration - 18 /min, O2 Sat - 98 %, Pain - 0, Fatigue - 0 and BP - 124/ 77 mm(hg). Physical Exam: General: Alert and oriented x 3. No acute distress. HEENT: Normocephalic, atraumatic. Extraocular Movements Intact: Pupils Equal, Round, Reactive to Light and Accommodation: Sclerae anicteric. Oral cavity is clear without lesions, masses or ulcers. Voice has resolved from prior hoarseness. NECK: Supple without supraclavicular or jugular lymphadenopathy. LUNGS: Clear to auscultation bilaterally without rales, rhonchi or wheeze. HEART: Regular rate and rhythm, normal S1 and S2 without murmur, gallop or rub. MUSCULOSKELETAL: No tenderness or percussion pain over the axial skeleton, scapulae or pelvis. ABDOMEN: Soft, nontender, nondistended without masses or organomegaly. Bowell sounds are present. EXTREMITIES: No peripheral edema is identified. Limited motor and sensory examination are grossly intact and symmetric bilaterally. NEUROLOGIC: Cranial nerves II ???XII are grossly intact. Normal sensation, strength 5/5 in all extremities, normal gait, no ataxia. Performance Status: KPS 90 Lab: None pending. Pathology: Primary, c32.0 - malignant neoplasm of glottis, Diagnosed 11/19/2024 (active) . Imaging: See HPI Impression: Resolving glottic SCC. Continues with mild erythema of lung cord. PLAN: Continue every 3-month scopes by Dr. Downs. RTC in 6 months to ensure good scoping results. If scope remains negative we would have her follow-up with just ENT after our next visit. Signed by: 05/06/2025 10:57:27 AM <<Signature on File>> Time spent with patient/review of documents/preparing of document: 20 min CPT Code: CPT Code:
== END 2025-05-10 23:59 | disposition home or self-care (01) ==
PROVIDERS: PCP Electrodiagnostic Medicine; Visit Provider Radiology Radiation Oncology
DX: C32.0 Malignant neoplasm of glottis (principal); Z92.3 Personal history of irradiation; L53.8 Other specified erythematous conditions
CPT/HCPCS: 99213